=== PATIENT | female | born 1945 | race Caucasian/White ===

== ENCOUNTER 2016-09-23 11:02 | Inpatient (IN) | payer OTHER ==
[~2016-09-23] VITALS: Ht 152.4 cm; Wt 58.0 kg
[2016-09-23 11:06] VITALS: Ht 152.4 cm; Wt 58.0 kg
[2016-09-23] MEDS ORDERED: METHYLPREDNISOLONE 125 MG INJ IV STA (11:27)
[2016-09-23] MEDS ORDERED: IPRATROPIUM (NEB) 0.5 MG/2.5 ML AMP INH STA (11:27)
[2016-09-23] MEDS ORDERED: ALBUTEROL 0.5% (NEB) 2.5 MG/0.5 ML AMP INH STA ×2 (11:27→13:20)
--- NOTE | 2016-09-23 11:30 | ERD ---
ER Documentation Chief Complaint Date/Time DATE: 09/23/16 TIME: 11:28 Chief Complaint COUGH , CHEST CONGESTION , WHEEZING X 3 DAYS HPI This a 71-year-old female who presents the emergency department today with her friend complaining of wheezing and cough for the past 3-4 days. Patient has a history of asthma for which she uses a Ventolin inhaler. Patient has not had improvement in symptoms. Denies any fevers, sore throat. Denies any chest pain. Patient denied ever being intubated for her asthma ROS All systems reviewed and are negative except as per history of present illness. Allergies Allergies: Coded Allergies: No Known Allergy (Unverified , 09/23/16) Physical Exam Vitals Vital Signs Date Time Temp Pulse Resp B/P Pulse Ox O2 Delivery O2 Flow Rate FiO2 09/23/16 13:30 84 22 94 21 09/23/16 11:38 87 24 96 21 09/23/16 11:06 98.2 86 18 137/92 94 Physical Exam Const: Mild distress Head: Atraumatic Eyes: Normal Conjunctiva ENT: Ears TMs normal. Nose no drainage. Throat no erythema no exit Neck: Full range of motion..~ No meningismus. Resp: Diffuse wheezing bilaterally in all lung lindsey that is audible. Cardio: Regular rate and rhythm, no murmurs Abd: Soft, non tender, non distended. Normal bowel sounds Skin: No petechiae or rashes Back: No midline or flank tenderness Ext: No cyanosis, or edema Neur: Awake and alert Psych: Normal Mood and Affect Result Diagram: 09/23/16 1225 09/23/16 1225 Results 24 hrs Laboratory Tests Test 09/23/16 12:22 09/23/16 12:25 Blood Gas Specimen Source Blood arterial Arterial Blood Date Drawn 09/23/2016 12:50:57 PM Arterial Blood pH (Temp corrected) 7.399 Arterial Blood pCO2 (Temp correct) 42.2mmhg Arterial Blood pO2 (Temp corrected) 64.0mmHG Arterial Blood HCO3 25.5mmol/L Arterial Blood Base Excess 0.5mmol/L Arterial Blood Oxygen Saturation 92.7mmHG Nahid Test ACCEPTAB Arterial Blood Gas Puncture Site Right Radial Arterial Blood Carboxyhemoglobin 0.3% Arterial Blood Methemoglobin 0.4% Blood Gas A-a O2 Differential 35.2mmHg Oxyhemoglobin Percent 92.1% Total Hemoglobin 14.2g/dl Blood Gas Temperature 37.0C Blood Gas Modality ROOM AIR FiO2 21.0% Blood Gas Notified Whom JLD Blood Gas Notified Time 09/23/2016 1:03:32 PM White Blood Count 6.810^3/ul Red Blood Count 4.1710^6/ul Hemoglobin 13.3g/dl Hematocrit 40.1% Mean Corpuscular Volume 96.2fl Mean Corpuscular Hemoglobin 31.9pg Mean Corpuscular Hemoglobin Concent 33.2g/dl Red Cell Distribution Width 12.4% Platelet Count 67989^3/UL Mean Platelet Volume 10.3fl Neutrophils % 41.3% Lymphocytes % 44.5% Monocytes % 9.4% Eosinophils % 4.1% Basophils % 0.6% Nucleated Red Blood Cells % 0.0/100WBC Neutrophils # 2.810^3/ul Lymphocytes # 3.010^3/ul Monocytes # 0.610^3/ul Eosinophils # 0.310^3/ul Basophils # 0.010^3/ul Nucleated Red Blood Cells # 0.010^3/ul Sodium Level 144mmol/L Potassium Level 3.1mmol/L Chloride Level 103mmol/L Carbon Dioxide Level 26mmol/L Anion Gap 18 Blood Urea Nitrogen 11mg/dl Creatinine 0.92mg/dl Glucose Level 123mg/dl Calcium Level 9.2mg/dl Total Bilirubin 0.4mg/dl Direct Bilirubin 0.00mg/dl Indirect Bilirubin 0.4mg/dl Aspartate Amino Transf (AST/SGOT) 85IU/L Alanine Aminotransferase (ALT/SGPT) 101IU/L Alkaline Phosphatase 122IU/L Troponin I < 0.012ng/ml Total Protein 7.9g/dl Albumin 4.3g/dl Globulin 3.60g/dl Albumin/Globulin Ratio 1.19 Lipase 105U/L Current Medications Medications (Trade) Dose Ordered Sig/Holli Route PRN Reason Start Time Stop Time Status Last Admin Dose Admin Albuterol (Proventil 0.5% (Neb)) 10 mg ONCE STAT INH 09/23/16 11:27 09/23/16 11:29 DC 09/23/16 11:37 Ipratropium [place] (Atrovent 0.02% (Neb)) 1 mg ONCE STAT INH 09/23/16 11:27 09/23/16 11:29 DC 09/23/16 11:37 Methylprednisolone Sodium Succinate (Solu-Medrol) 125 mg ONCE STAT IV 09/23/16 11:27 09/23/16 11:29 DC 09/23/16 11:40 Magnesium Sulfate 1 gm 1 gm ONCE ONCE IVPB 09/23/16 12:30 09/23/16 12:31 DC Magnesium Sulfate/ Dextrose (Magnesium Sulfate 1 Gm/D5W) 100 ml @ 100 mls/hr ONCE ONCE IVPB 09/23/16 13:00 09/23/16 13:59 DC 09/23/16 12:37 Albuterol 10 mg 10 mg ONCE STAT INH 09/23/16 13:20 09/23/16 13:21 DC 09/23/16 13:31 Levofloxacin/ Dextrose (Levaquin 500mg/ D5W 100 ml (Pmx)) 100 ml @ 100 mls/hr ONCE ONCE IVPB 09/23/16 14:30 09/23/16 15:29 09/23/16 14:26 DIAGNOSTIC IMAGING REPORT Patient: STEFANIA PHAN : 1945 Age: 71 Sex: F MR #: [id number] DOS: 09/23/16 1127 Ordering MD: KEVYN GARCIA PA-C Location: [facility] Room/Bed: PROCEDURE: Chest 1 views. CLINICAL INDICATION: Shortness of breath, asthma TECHNIQUE: AP views of the chest was obtained. COMPARISON: None. FINDINGS: The heart is large. The lungs are hyperexpanded. Atelectasis is seen at the left lung base. Atelectasis versus minimal infiltrates are seen at the right lung base. Subsegmental atelectasis is identified in the right upper lobe. Osseous structures are intact. IMPRESSION: Cardiomegaly . Hyperexpanded lungs. Atelectasis versus minimal infiltrates at the right lung base. Subsegmental atelectasis at the left lung base and in the medial aspect of the right upper lobe. RPTAT: AA .Zoltan Welsh MD, Date Time Electronically viewed and signed by .Zoltan Welsh MD, on 09/23/2016 12:13 .P/ CC: KEVYN GARCIA PA-C Procedures/[facility] This is a 71-year-old female who presents to the emergency department today complaining of wheezing and cough and chest congestion for the past 2-3 days. Patient is an asthmatic and has been using her ventolin inhaler with no improvement in symptoms. I did obtain a chest x-ray. Dr. Adame has seen and evaluated the patient has requested laboratory work as well as a EKG and ABG Laboratory work shows no elevated white blood cell count. She is not anemic. Platelets are within normal limits. Potassium is mildly decreased however patient has been given breathing treatment. Liver function is elevated. Troponin is negative. Lipase within normal limits ABG shows mild hypoxia. Chest x-ray shows hyperexpanded lungs. Atelectasis versus minimal infiltrates at the right lung base. There is subsegmental embolus at left lung base and in the medial aspect of the right upper lobe. The heart is enlarged. EKG read and interpreted by Dr. Adame rate [address] elevation. No QT prolongation. Normal sinus rhythm with incomplete right bundle branch block. Patient was given a 1 hour continuous breathing treatment in addition to IV Solu -Medrol and magnesium. Patient's wheezing persisted and was therefore given another 1 hour breathing treatment. Audible wheezing continued after 2 1 hour continuous breathing treatment and I discussed the patient again with Dr. Adame who feels that the patient should be admitted at this time. I am in agreement. Patient will be admitted to the hospital for acute asthma exacerbation and pneumonia. Patient was given IV Levaquin here in the emergency department. Any further orders placed will be completed by the admitting physician or Dr. Adame. Departure Diagnosis: Primary Impression: Pneumonia Pneumonia type: due to unspecified organism Laterality: right Lung location : lower lobe of lung Qualified Code: J18.1 - Pneumonia of right lower lobe due to infectious organism Additional Impression: Asthma exacerbation Condition: Fair KEVYN GARCIA PA-C September 23, 2016 11:30
--- NOTE | 2016-09-23 12:14 | RADRPT ---
PROCEDURE: Chest 1 views. CLINICAL INDICATION: Shortness of breath, asthma TECHNIQUE: AP views of the chest was obtained. COMPARISON: None. FINDINGS: The heart is large. The lungs are hyperexpanded. Atelectasis is seen at the left lung base. Atelec tasis versus minimal infiltrates are seen at the right lung base. Subsegmental atelectasis is ident ified in the right upper lobe. Osseous structures are intact. IMPRESSION: Cardiomegaly . Hyperexpanded lungs. Atelectasis versus minimal infiltrates at the right lung base. Subsegmental atelectasis at the left lung base and in the medial aspect of the right upper lobe. RPTAT: AA .Zoltan Welsh MD, Date Time Electronically viewed and signed by .Zoltan Welsh MD, MD on 09/23/2016 12:13 .P/
[2016-09-23] MEDS ORDERED: MAGNESIUM SULFATE (GM) 50% 2 ML INJ IVPB ONE (12:30)
[2016-09-23 12:47] LABS: ADD SCAN DIFF NO
[2016-09-23 12:49] LABS: BASOPHILS % 0.6 % (0.0-2.0); EOSINOPHILS # 0.3 10^3/ul (0.0-0.5); EOSINOPHILS % 4.1 % (0.0-7.0); HEMATOCRIT 40.1 % (37.0-47.0); HEMOGLOBIN 13.3 g/dl (12.0-16.0); LYMPHOCYTES % 44.5 % (15.0-51.0); MEAN CORPUSCULAR HEMOGLOBIN 31.9 pg (29.0-33.0); MEAN CORPUSCULAR HGB CONC 33.2 g/dl (32.0-37.0); MEAN CORPUSCULAR VOLUME 96.2 fl (82.0-101.0); MEAN PLATELET VOLUME 10.3 fl (7.4-10.4); MONOCYTE # 0.6 10^3/ul (0.3-0.9); MONOCYTES % 9.4 % (0.0-11.0); NEUTROPHIL # 2.8 10^3/ul (1.6-7.5); NEUTROPHILS % 41.3 % (39.0-77.0); PLATELET COUNT 199 10^3/UL (140-415); RED BLOOD COUNT 4.17 10^6/ul (4.20-5.40); RED CELL DISTRIBUTION WIDTH 12.4 % (11.5-14.5); WHITE BLOOD COUNT 6.8 10^3/ul (4.8-10.8)
[2016-09-23] MEDS ORDERED: MAGNESIUM SULFATE 1 GM/D5W 100 ML IVPB ONE (13:00)
[2016-09-23 13:03] LABS: AADO2 Arterial 35.2 mmHg (7.0-24.0); Allen Test ACCEPTAB; Arterial Base Excess 0.5 mmol/L (-3.0-3); Arterial COHb 0.3 % (0.0-3.0); Arterial Fraction of Oxyhgb 92.1 % (93.0-99.0); Arterial HCO3 25.5 mmol/L (22.0-26.0); Arterial MetHb 0.4 % (0.0-1.5); Arterial Total Hemglobin 14.2 g/dl (12.0-18.0); MODE ROOM AIR
[2016-09-23 13:04] LABS: ALBUMIN 4.3 g/dl (3.3-4.9); CHLORIDE 103 mmol/L (97-110)
[2016-09-23 13:05] LABS: POTASSIUM 3.1 mmol/L (3.5-5.1); SODIUM 144 mmol/L (135-144)
[2016-09-23 13:07] LABS: ALBUMIN/GLOBULIN RATIO 1.19; ANION GAP 18 (8-16); BILIRUBIN,INDIRECT 0.4 mg/dl (0-1.1); BILIRUBIN,TOTAL 0.4 mg/dl (0.2-1.3); CARBON DIOXIDE 26 mmol/L (21-31); CREATININE 0.92 mg/dl (0.44-1.00); TOTAL PROTEIN 7.9 g/dl (6.1-8.1)
[2016-09-23 13:08] LABS: ALANINE AMINOTRANSFERASE 101 IU/L (13-69); ALKALINE PHOSPHATASE 122 IU/L (42-121); ASPARTATE AMINO TRANSFERASE 85 IU/L (15-46); BLOOD UREA NITROGEN 11 mg/dl (7-20); CALCIUM 9.2 mg/dl (8.4-10.2); GLUCOSE 123 mg/dl (70-220)
[2016-09-23 13:25] VITALS: TEMP 98.2
[2016-09-23 13:26] LABS: TROPONIN-I < 0.012 ng/ml (0.00-0.12)
[2016-09-23] MEDS ORDERED: LEVOFLOXACIN 500MG/D5W (PMX) 100 ML IVPB ONE (14:30)
[2016-09-23] MEDS ORDERED: ASPI-664 PO (15:12)
[2016-09-23] MEDS ORDERED: CALC-277 PO (15:15)
[2016-09-23] MEDS ORDERED: AMLO2.5T78 PO (15:16)
[2016-09-23] MEDS ORDERED: VITA200C36 PO (15:16)
[2016-09-23] MEDS ORDERED: LOSA100T7 PO (15:17)
[2016-09-23] MEDS ORDERED: ALBU18HF INHALATION (15:18)
[2016-09-23 17:17] VITALS: BP 156/74; PULSE 94; RESP 19
[2016-09-23 17:24] VITALS: PULSE 100
[2016-09-23] MEDS ORDERED: DOCUSATE SODIUM 100 MG CAP PO PRN (18:30)
[2016-09-23] MEDS ORDERED: NACL 0.9% 3 ML SYG IV SCH (18:30)
[2016-09-23] MEDS ORDERED: ACETAMINOPHEN 325 MG TAB PO PRN (18:30)
[2016-09-23] MEDS ORDERED: DEXTROSE 50% 50 ML SYRINGE IV PRN ×2 (18:30)
[2016-09-23] MEDS ORDERED: ONDANSETRON 4 MG INJ IV PRN (18:30)
[2016-09-23] MEDS ORDERED: ZOLPIDEM 5 MG TAB PO PRN (18:30)
[2016-09-23] MEDS ORDERED: GLUCOSE GEL 15 GRAM TUBE BUCCAL PRN (18:30)
[2016-09-23] MEDS ORDERED: GLUCAGON 1 MG INJ IM PRN (18:30)
[2016-09-23] MEDS ORDERED: HYDROCODONE/APAP (5/325) TAB PO PRN (18:30)
[2016-09-23] MEDS ORDERED: morphine 2 MG INJ IV PRN (18:30)
[2016-09-23] MEDS ORDERED: GLUCOSE GEL 15 GRAM TUBE PO PRN ×2 (18:30)
[2016-09-23] MEDS: CEFTRIAXONE 1 GM/50 ML (PMX) 50 ML IVPB SCH (18:58)
[2016-09-23] MEDS ORDERED: POTASSIUM CHLORIDE (SR) 20 MEQ TAB PO STA (19:16)
[2016-09-23] MEDS: AZITHROMYCIN 500MG/NS (PMX) 250 ML IVPB SCH (19:38)
[2016-09-23 20:00] VITALS: BP 150/74; RESP 19
[2016-09-23 20:15] VITALS: PULSE 100
[2016-09-23] MEDS: LOSARTAN 50 MG TAB PO SCH (20:16)
[2016-09-23] MEDS: SALMETEROL/FLUTICASONE 250/50 INHA INH SCH (20:16)
[2016-09-23] MEDS: INSULIN ASPART [NOVOLOG] 3 ML PEN SC SCH (20:19)
[2016-09-23] MEDS: METHYLPREDNISOLONE 125 MG INJ IV SCH (21:07)
[2016-09-24] VITALS (12 sets, daily range): BP systolic 123–153; BP diastolic 63–72; PULSE 63–87; RESP 17–18
[2016-09-24] MEDS ORDERED: ACCU-CHEK XX SCH (02:00)
[2016-09-24] MEDS: METHYLPREDNISOLONE 125 MG INJ IV SCH ×3 (05:14→22:00)
[2016-09-24] MEDS ORDERED: ALBUTEROL/IPRATROPIUM (NEB) 3 ML AMP HHN PRN ×2 (06:30→11:30)
[2016-09-24 06:55] LABS: ADD SCAN DIFF NO; HAAIG REFLEX REFLEX FILED
[2016-09-24 06:58] LABS: HEMATOCRIT 40.3 % (37.0-47.0); HEMOGLOBIN 13.4 g/dl (12.0-16.0); LYMPHOCYTES # 0.7 10^3/ul (0.8-2.9); LYMPHOCYTES % 11.6 % (15.0-51.0); MEAN CORPUSCULAR HEMOGLOBIN 32.4 pg (29.0-33.0); MEAN CORPUSCULAR HGB CONC 33.3 g/dl (32.0-37.0); MEAN CORPUSCULAR VOLUME 97.3 fl (82.0-101.0); MEAN PLATELET VOLUME 10.5 fl (7.4-10.4); MONOCYTE # 0.2 10^3/ul (0.3-0.9); NEUTROPHIL # 4.8 10^3/ul (1.6-7.5); PLATELET COUNT 202 10^3/UL (140-415); RED BLOOD COUNT 4.14 10^6/ul (4.20-5.40); RED CELL DISTRIBUTION WIDTH 12.4 % (11.5-14.5); WHITE BLOOD COUNT 5.7 10^3/ul (4.8-10.8)
[2016-09-24 07:58] LABS: ALBUMIN 4.1 g/dl (3.3-4.9); ALBUMIN/GLOBULIN RATIO 1.1; BILIRUBIN,INDIRECT 0.3 mg/dl (0-1.1); BILIRUBIN,TOTAL 0.3 mg/dl (0.2-1.3); CALCIUM 8.9 mg/dl (8.4-10.2); CHOL/HDL RATIO 4.5 RATIO; CREATININE 0.79 mg/dl (0.44-1.00); MAGNESIUM 2.2 mg/dl (1.7-2.5); PHOSPHORUS 1.9 mg/dl (2.5-4.9); POTASSIUM 5.1 mmol/L (3.5-5.1); TOTAL PROTEIN 7.8 g/dl (6.1-8.1)
[2016-09-24 08:15] LABS: HEPATITIS B CORE ANTIBODY NEGATIVE (NEGATIVE)
[2016-09-24] MEDS: SALMETEROL/FLUTICASONE 250/50 INHA INH SCH ×2 (08:47→20:20)
[2016-09-24] MEDS: ASPIRIN (EC) 81 MG TAB PO SCH (08:47)
[2016-09-24] MEDS: AMLODIPINE 2.5 MG TAB PO SCH (08:48)
[2016-09-24] MEDS: INSULIN ASPART [NOVOLOG] 3 ML PEN SC SCH ×4 (08:52→20:24)
--- NOTE | 2016-09-24 13:06 | CONS ---
Date/Time of Note Date/Time of Note DATE: 09/24/16 TIME: 13:02 Assessment/Plan Assessment/Plan Additional Assessment/Plan Chest x-ray was reviewed from yesterday which is essentially clear. Assessment recommendations; 1. Patient admitted for severe asthma exacerbation with acute bronchitis. 2. History of hypertension or diabetes. Continue current treatment. Consultation Date/Type/Reason Admit Date/Time September 23, 2016 at 16:01 Date of Consultation: September 24, 2016 Type of Consultation: Pulmonary Reason for Consultation Pulmonary consultations obtained for evaluation of severe asthma. History presenting any; patient is a pleasant 71-year-old lady who came into the emergency room yesterday with a few days history of increasing shortness of breath, chest congestion, wheezing. Patient however denies any high fever, chills any sore throat or myalgias. Upon evaluation patient was diagnosed with asthma exacerbation. Past medical history; next 1. History of long-standing asthma. 2. Diabetes. 3. Hypertension. Medications; reviewed. Allergies; none. Social history; patient never smoked. No history of alcohol or drug abuse. Family history; patient is , she has 5 children. Various family members of hypertension diabetes. Occupational history; patient has been a housewife. Review of systems; denies any headache, any visual changes. Any sinus congestion. Complains of shortness of breath, severe wheezing, cough and sputum production. Denies any hemoptysis. Denies abdominal pain, nausea vomiting. Any weight loss. Complains of orthopnea. Denies any melena, hematochezia. Any edema. Any urinary symptoms. General exam; elderly lady, awake alert currently in no distress, severe coughing episodes were observed. Social History Smoking Status: Never smoker Exam/Review of Systems Vital Signs Vitals Vital Signs Date Time Temp Pulse Resp B/P Pulse Ox O2 Delivery O2 Flow Rate FiO2 09/24/16 11:41 97.8 75 17 129/69 94 09/24/16 09:10 21 Intake and Output 09/23/16 09/23/16 09/24/16 14:59 22:59 06:59 Intake Total 220 ml 420 ml Balance 220 ml 420 ml Exam HEENT exam is; supple neck, no JVD. No lymphadenopathy. Midline trachea. No thyromegaly. Pharynx is clear. Pupils are small bilaterally. Patient has fair dentition. Chest examination; diffuse bilateral wheezing. S1-S2 audible, no murmurs. Regular rhythm. Abdomen examination; soft, nontender, no organomegaly. Bowel sounds audible. Extremity exam is; no peripheral edema. Pulses 1+ bilaterally. PSYCHOLOGY TECH examination; no focal deficit. Results Result Diagram: 09/24/1625 09/24/1625 Results 24 hrs Laboratory Tests Test 09/23/16 19:43 09/24/16 03:41 09/24/16 06:25 09/24/16 08:46 Bedside Glucose 285 H 169 156 White Blood Count 5.7 Red Blood Count 4.14 L Hemoglobin 13.4 Hematocrit 40.3 Mean Corpuscular Volume 97.3 Mean Corpuscular Hemoglobin 32.4 Mean Corpuscular Hemoglobin Concent 33.3 Red Cell Distribution Width 12.4 Platelet Count 202 Mean Platelet Volume 10.5 H Neutrophils % 84.0 H Lymphocytes % 11.6 L Monocytes % 4.0 Eosinophils % 0.0 Basophils % 0.0 Nucleated Red Blood Cells % 0.0 Neutrophils # 4.8 Lymphocytes # 0.7 L Monocytes # 0.2 L Eosinophils # 0.0 Basophils # 0.0 Nucleated Red Blood Cells # 0.0 Sodium Level 145 H Potassium Level 5.1 # Chloride Level 112 H Carbon Dioxide Level 26 Anion Gap 12 Blood Urea Nitrogen 18 Creatinine 0.79 Glucose Level 196 Hemoglobin A1c 6.0 H Calcium Level 8.9 Phosphorus Level 1.9 L Magnesium Level 2.2 Total Bilirubin 0.3 Direct Bilirubin 0.00 Indirect Bilirubin 0.3 Aspartate Amino Transf (AST/SGOT) 46 Alanine Aminotransferase (ALT/SGPT) 80 H Alkaline Phosphatase 110 Total Protein 7.8 Albumin 4.1 Globulin 3.70 H Albumin/Globulin Ratio 1.10 Triglycerides Level 84 Cholesterol Level 174 LDL Cholesterol, Calculated 119 HDL Cholesterol 38 Cholesterol/HDL Ratio 4.5 Hepatitis B Surface Antigen NEGATIVE Hepatitis B Core Total Antibody NEGATIVE Hepatitis C Antibody NEGATIVE Test 09/24/16 11:29 09/24/16 11:33 Bedside Glucose 280 H 279 H Medications Medications Current Medications Ondansetron HCl (Zofran Inj) 4 mg Q6H PRN IV NAUSEA AND/OR VOMITING; Start 09/23 at 18:30 Acetaminophen (Tylenol Tab) 650 mg Q6H PRN PO PAIN LEVEL 1-3 OR FEVER; Start at 18:30 Acetaminophen/ Hydrocodone Bitart ([place] (5/325)) 1 tab Q6H PRN PO MODERATE PAIN LEVEL 4-6; Start 09/23/16 at 18:30 Morphine Sulfate (morphine) 2 mg Q4H PRN IV SEVERE PAIN LEVEL 7-10; Start at 18:30 Docusate Sodium (Colace) 100 mg Q12H PRN PO CONSTIPATION; Start 09/23/16 at 18: 30 Zolpidem Tartrate (Ambien) 5 mg QHS PRN PO SLEEP; Start 09/23/16 at 18:30 Salmeterol Xinafoate/ Fluticasone (Advair 250/50 Diskus) 1 inh BID INH Last administered on 09/24/16 08:47; Admin Dose 1 INH; Start 09/23/16 at 21:00 Methylprednisolone Sodium Succinate 60 mg 60 mg Q8 IV Last administered on 05:14; Admin Dose 60 MG; Start 09/23/16 at 22:00 Azithromycin 250 ml @ 250 mls/hr Q24H IVPB Last administered on 09/23/16 19:38 ; Admin Dose 250 MLS/HR; Start 09/23/16 at 18:30 Ceftriaxone Sodium (Rocephin) 50 ml @ 100 mls/hr Q24H IVPB Last administered on 09/23/16 18:58; Admin Dose 100 MLS/HR; Start 09/23/16 at 18:30 Amlodipine Besylate (Norvasc) 2.5 mg DAILY PO Last administered on 09/24/16 08: 48; Admin Dose 2.5 MG; Start 09/24/16 at 09:00 Aspirin (Halfprin) 81 mg DAILY PO Last administered on 09/24/16 08:47; Admin Dose 81 MG; Start 09/24/16 at 09:00 Losartan Potassium (Cozaar) 100 mg QHS PO Last administered on 09/23/16 20:16; Admin Dose 100 MG; Start 09/23/16 at 21:00 Diagnostic Test (Pha) (Accu-Chek) 1 ea 02 XX ; Start 09/24/16 at 02:00 Miscellaneous Information 1 ea NOTE XX ; Start 09/23/16 at 18:30 Glucose (Glutose) 15 gm Q15M PRN PO DECREASED GLUCOSE; Start 09/23/16 at 18:30 Glucose (Glutose) 22.5 gm Q15M PRN PO DECREASED GLUCOSE; Start 09/23/16 at 18:30 Dextrose (D50w Syringe) 25 ml Q15M PRN IV DECREASED GLUCOSE; Start 09/23/16 at 18:30 Dextrose (D50w Syringe) 50 ml Q15M PRN IV DECREASED GLUCOSE; Start 09/23/16 at 18:30 Glucagon (Glucagen) 1 mg Q15M PRN IM DECREASED GLUCOSE; Start 09/23/16 at 18:30 Glucose (Glutose) 15 gm Q15M PRN BUCCAL DECREASED GLUCOSE; Start 09/23/16 at 18: 30 Promethazine HCl/ Codeine (Phenergan/ Codeine) 5 ml Q4H PRN PO COUGH; Start 09/24/16 at 11:30 GREGORY BAILEY September 24, 2016 13:05
[2016-09-24] MEDS: PROMETHAZINE/CODEINE 5ML CUP PO PRN ×2 (14:18→23:59)
[2016-09-24] MEDS: ALBUTEROL/IPRATROPIUM (NEB) 3 ML AMP HHN PRN (14:57)
--- NOTE | 2016-09-24 15:27 | PN ---
Date/Time of Note Date/Time of Note DATE: 09/24/16 TIME: 15:22 Assessment/Plan VTE Prophylaxis VTE Prophylaxis Intervention: SCD's Lines/Catheters IV [facility] Saline Lock Assessment/Plan Chief Complaint/Hosp Course 1. Acute asthma exacerbation with acute bronchitis -Continue Rocephin and azithromycin -Continue breathing treatments as well as IV steroids -Pulmonology consultation appreciated -Phenergan with codeine as needed 2. Hypertension-stable -Continue home meds Prophylaxis: SCDs Problems: Subjective 24 Hr Interval Summary Respiratory: shortness of breath Exam/Review of Systems Vital Signs Vitals Vital Signs Date Time Temp Pulse Resp B/P Pulse Ox O2 Delivery O2 Flow Rate FiO2 09/24/16 14:01 78 09/24/16 11:41 97.8 17 129/69 94 09/24/16 09:10 21 Intake and Output 09/23/16 09/23/16 09/24/16 15:00 23:00 07:00 Intake Total 220 ml 420 ml Balance 220 ml 420 ml Exam Constitutional: alert Respiratory: wheezing Cardiovascular: regular rate and rhythm Gastrointestinal: soft, No distended Musculoskeletal: nl extremities to inspection Results Result Diagram: 09/24/16 0625 09/24/16 0625 Results 24 hrs Laboratory Tests Test 09/23/16 19:43 09/24/16 03:41 09/24/16 06:25 09/24/16 08:46 Bedside Glucose 285 H 169 156 White Blood Count 5.7 Red Blood Count 4.14 L Hemoglobin 13.4 Hematocrit 40.3 Mean Corpuscular Volume 97.3 Mean Corpuscular Hemoglobin 32.4 Mean Corpuscular Hemoglobin Concent 33.3 Red Cell Distribution Width 12.4 Platelet Count 202 Mean Platelet Volume 10.5 H Neutrophils % 84.0 H Lymphocytes % 11.6 L Monocytes % 4.0 Eosinophils % 0.0 Basophils % 0.0 Nucleated Red Blood Cells % 0.0 Neutrophils # 4.8 Lymphocytes # 0.7 L Monocytes # 0.2 L Eosinophils # 0.0 Basophils # 0.0 Nucleated Red Blood Cells # 0.0 Sodium Level 145 H Potassium Level 5.1 # Chloride Level 112 H Carbon Dioxide Level 26 Anion Gap 12 Blood Urea Nitrogen 18 Creatinine 0.79 Glucose Level 196 Hemoglobin A1c 6.0 H Calcium Level 8.9 Phosphorus Level 1.9 L Magnesium Level 2.2 Total Bilirubin 0.3 Direct Bilirubin 0.00 Indirect Bilirubin 0.3 Aspartate Amino Transf (AST/SGOT) 46 Alanine Aminotransferase (ALT/SGPT) 80 H Alkaline Phosphatase 110 Total Protein 7.8 Albumin 4.1 Globulin 3.70 H Albumin/Globulin Ratio 1.10 Triglycerides Level 84 Cholesterol Level 174 LDL Cholesterol, Calculated 119 HDL Cholesterol 38 Cholesterol/HDL Ratio 4.5 Hepatitis B Surface Antigen NEGATIVE Hepatitis B Core Total Antibody NEGATIVE Hepatitis C Antibody NEGATIVE Test 09/24/16 11:29 09/24/16 11:33 Bedside Glucose 280 H 279 H Medications Medications Current Medications Ondansetron HCl (Zofran Inj) 4 mg Q6H PRN IV NAUSEA AND/OR VOMITING; Start 09/23 at 18:30 Acetaminophen (Tylenol Tab) 650 mg Q6H PRN PO PAIN LEVEL 1-3 OR FEVER; Start at 18:30 Acetaminophen/ Hydrocodone Bitart ([place] (5/325)) 1 tab Q6H PRN PO MODERATE PAIN LEVEL 4-6; Start 09/23/16 at 18:30 Morphine Sulfate (morphine) 2 mg Q4H PRN IV SEVERE PAIN LEVEL 7-10; Start at 18:30 Docusate Sodium (Colace) 100 mg Q12H PRN PO CONSTIPATION; Start 09/23/16 at 18: 30 Zolpidem Tartrate (Ambien) 5 mg QHS PRN PO SLEEP; Start 09/23/16 at 18:30 Salmeterol Xinafoate/ Fluticasone (Advair 250/50 Diskus) 1 inh BID INH Last administered on 09/24/16 08:47; Admin Dose 1 INH; Start 09/23/16 at 21:00 Methylprednisolone Sodium Succinate 60 mg 60 mg Q8 IV Last administered on 14:18; Admin Dose 60 MG; Start 09/23/16 at 22:00 Azithromycin 250 ml @ 250 mls/hr Q24H IVPB Last administered on 09/23/16 19:38 ; Admin Dose 250 MLS/HR; Start 09/23/16 at 18:30 Ceftriaxone Sodium (Rocephin) 50 ml @ 100 mls/hr Q24H IVPB Last administered on 09/23/16 18:58; Admin Dose 100 MLS/HR; Start 09/23/16 at 18:30 Amlodipine Besylate (Norvasc) 2.5 mg DAILY PO Last administered on 09/24/16 08: 48; Admin Dose 2.5 MG; Start 09/24/16 at 09:00 Aspirin (Halfprin) 81 mg DAILY PO Last administered on 09/24/16 08:47; Admin Dose 81 MG; Start 09/24/16 at 09:00 Losartan Potassium (Cozaar) 100 mg QHS PO Last administered on 09/23/16 20:16; Admin Dose 100 MG; Start 09/23/16 at 21:00 Diagnostic Test (Pha) (Accu-Chek) 1 ea 02 XX ; Start 09/24/16 at 02:00 Miscellaneous Information 1 ea NOTE XX ; Start 09/23/16 at 18:30 Glucose (Glutose) 15 gm Q15M PRN PO DECREASED GLUCOSE; Start 09/23/16 at 18:30 Glucose (Glutose) 22.5 gm Q15M PRN PO DECREASED GLUCOSE; Start 09/23/16 at 18:30 Dextrose (D50w Syringe) 25 ml Q15M PRN IV DECREASED GLUCOSE; Start 09/23/16 at 18:30 Dextrose (D50w Syringe) 50 ml Q15M PRN IV DECREASED GLUCOSE; Start 09/23/16 at 18:30 Glucagon (Glucagen) 1 mg Q15M PRN IM DECREASED GLUCOSE; Start 09/23/16 at 18:30 Glucose (Glutose) 15 gm Q15M PRN BUCCAL DECREASED GLUCOSE; Start 09/23/16 at 18: 30 Promethazine HCl/ Codeine (Phenergan/ Codeine) 5 ml Q4H PRN PO COUGH Last administered on 09/24/16 14:18; Admin Dose 5 ML; Start 09/24/16 at 11:30 DAIJA CONWAY September 24, 2016 15:27
[2016-09-24] MEDS: CEFTRIAXONE 1 GM/50 ML (PMX) 50 ML IVPB SCH (17:48)
[2016-09-24] MEDS: AZITHROMYCIN 500MG/NS (PMX) 250 ML IVPB SCH (17:48)
[2016-09-24] MEDS: ALBUTEROL/IPRATROPIUM (NEB) 3 ML AMP HHN SCH ×2 (17:53→20:47)
[2016-09-24] MEDS: LOSARTAN 50 MG TAB PO SCH (20:20)
[2016-09-24] MEDS ORDERED: INSULIN ASPART [NOVOLOG] 3 ML PEN SC ONE (21:30)
[2016-09-24] MEDS ORDERED: INSULIN GLARGINE [LANtus] 3 ML PEN SC SCH (22:30)
[2016-09-25] VITALS (12 sets, daily range): BP systolic 90–127; BP diastolic 49–62; PULSE 80–85; RESP 16–20
[2016-09-25] MEDS: ALBUTEROL/IPRATROPIUM (NEB) 3 ML AMP HHN SCH ×6 (00:08→21:00)
[2016-09-25] MEDS: ACCU-CHEK XX SCH (02:00)
[2016-09-25] MEDS: METHYLPREDNISOLONE 125 MG INJ IV SCH ×3 (05:36→22:05)
[2016-09-25] MEDS: PROMETHAZINE/CODEINE 5ML CUP PO PRN ×2 (05:50→14:11)
--- NOTE | 2016-09-25 07:16 | HP ---
DATE OF ADMISSION: 09/23/2016 CHIEF COMPLAINT: Shortness of breath. HISTORY OF PRESENT ILLNESS: The patient is a 71-year-old female with a history of asthma, as well a s [id number] diabetes and hypertension. The patient is only using albuterol and she stat es that she uses albuterol twice a day. The patient states that for the past 3 days she has had per sistent wheezing and shortness of breath with mucus production. She states that the albuterol inhal er has not been helping her and hence presents to the ED. She has no other complaints at this time. PAST MEDICAL HISTORY: As per HPI. PAST SURGICAL HISTORY: Denies. HOME MEDICATIONS: Please see medication reconciliation. ALLERGIES: NO KNOWN DRUG ALLERGIES. FAMILY HISTORY: Hypertension, diabetes. SOCIAL HISTORY: Denies any alcohol, tobacco, or drug use. REVIEW OF SYSTEMS: A 12-point review of systems is negative except as per that in HPI. PHYSICAL EXAMINATION: VITAL SIGNS: Temperature 98.8, pulse 100, respiratory rate is 19, BP is 156/74, saturation 95% on 3 liters of nasal cannula. No acute distress, alert and oriented. HEENT: Normocephalic, atraumatic. CHEST: Bilateral wheezing appreciated. CARDIOVASCULAR: Regular rate and rhythm. ABDOMEN: Nondistended, nontender, soft. EXTREMITIES: No clubbing, cyanosis, edema. LABORATORIES: White count 6.8, hemoglobin is 13.3, platelets 199. Chemistry: Sodium is 144, potas sium is 3.1, anion gap is 18. AST is 85, ALT is 101, alkaline phosphatase 122. DIAGNOSTICS: Chest x-ray shows cardiomegaly, hyperexpanded lungs, atelectasis versus minimal infilt rates in the right lung base, subsegmental atelectasis at the left lung base and the medial aspect o f the right upper lobe ASSESSMENT AND PLAN: 1. Asthma exacerbation. The patient may have concomitant bronchitis as she does have a productive cough as well as chest x-ray that shows possible infiltrates in the right lung base. Will treat wit h Rocephin and azithromycin will give the patient steroids as well as prednisone p.o. 2. Hypokalemia. We will replete. 3. Diabetes. sliding scale. Continue home metformin. 4. Hypertension. Continue home medications. 5. Transaminitis, cause unclear. We will check a hep panel. 7. Prophylaxis: SCDs and . Dictated By: DAIJA THOMAS/ZELDA Conf#: [id number] DID#: [id number]
[2016-09-25 08:02] LABS: ADD SCAN DIFF NO
[2016-09-25 08:07] LABS: BASOPHILS % 0.1 % (0.0-2.0); HEMATOCRIT 38.8 % (37.0-47.0); HEMOGLOBIN 12.4 g/dl (12.0-16.0); LYMPHOCYTES # 0.6 10^3/ul (0.8-2.9); LYMPHOCYTES % 4.7 % (15.0-51.0); MEAN CORPUSCULAR HEMOGLOBIN 31.2 pg (29.0-33.0); MEAN CORPUSCULAR VOLUME 97.7 fl (82.0-101.0); MEAN PLATELET VOLUME 10.9 fl (7.4-10.4); MONOCYTE # 0.4 10^3/ul (0.3-0.9); NEUTROPHIL # 12.2 10^3/ul (1.6-7.5); NEUTROPHILS % 91.7 % (39.0-77.0); PLATELET COUNT 213 10^3/UL (140-415); RED BLOOD COUNT 3.97 10^6/ul (4.20-5.40); RED CELL DISTRIBUTION WIDTH 12.9 % (11.5-14.5); WHITE BLOOD COUNT 13.3 10^3/ul (4.8-10.8)
[2016-09-25] MEDS: SALMETEROL/FLUTICASONE 250/50 INHA INH SCH ×2 (08:11→20:40)
[2016-09-25] MEDS: AMLODIPINE 2.5 MG TAB PO SCH (08:12)
[2016-09-25] MEDS: ASPIRIN (EC) 81 MG TAB PO SCH (08:12)
[2016-09-25] MEDS: INSULIN ASPART [NOVOLOG] 3 ML PEN SC SCH ×7 (08:22→20:42)
[2016-09-25 08:36] LABS: ALBUMIN 3.8 g/dl (3.3-4.9); ALBUMIN/GLOBULIN RATIO 1.22; BILIRUBIN,INDIRECT 0.1 mg/dl (0-1.1); BILIRUBIN,TOTAL 0.1 mg/dl (0.2-1.3); CALCIUM 8.5 mg/dl (8.4-10.2); PHOSPHORUS 3.1 mg/dl (2.5-4.9); POTASSIUM 3.9 mmol/L (3.5-5.1); TOTAL PROTEIN 6.9 g/dl (6.1-8.1)
--- NOTE | 2016-09-25 10:56 | CONS ---
Date/Time of Note Date/Time of Note DATE: 09/25/16 TIME: 10:54 Assessment/Plan Assessment/Plan Additional Assessment/Plan Assessment recommendations; 1. Patient admitted for severe asthmatic bronchitis exacerbation with very slow clinical improvement. 2. History of hypertension. 3. History of diabetes. Continue current treatment. Insulin dosing has been adjusted by the primary care physician for better glycemic control. Consultation Date/Type/Reason Admit Date/Time September 23, 2016 at 16:01 Initial Consult Date 09/24/16 Type of Consultation: Pulmonary 24 HR Interval Summary Free Text/Dictation Patient condition has slightly improved compared to yesterday. However still complains of significant wheezing, chest congestion and coughing. Denies any fever chills chest pain. General exam; elderly lady, awake alert currently in no distress, Exam/Review of Systems Vital Signs Vitals Vital Signs Date Time Temp Pulse Resp B/P Pulse Ox O2 Delivery O2 Flow Rate FiO2 09/25/16 08:36 80 09/25/16 08:21 2.0 09/25/16 08:16 Nasal Cannula 09/25/16 08:00 28 95 09/25/16 07:41 97.4 107/58 09/24/16 09:10 21 Intake and Output 09/24/16 09/24/16 09/25/16 15:00 23:00 07:00 Intake Total 1300 ml 700 ml Balance 1300 ml 700 ml Exam HEENT exam is; supple neck, no JVD. No lymphadenopathy. Midline trachea. No thyromegaly. Pharynx is clear. Patient has fair dentition. Chest examined; bilateral wheezing. S1-S2 audible, no murmurs. Regular rhythm. Abdomen examination; soft, nondistended. No organomegaly. Bowel sounds audible. Extremity examination; no peripheral edema. [employer] examination; no focal deficit. Results Result Diagram: 09/25/16 0642 09/25/16 0642 Results 24 hrs Laboratory Tests Test 09/24/16 11:29 09/24/16 11:33 09/24/16 17:46 09/24/16 20:17 Bedside Glucose 280 H 279 H 190 320 H Test 09/25/16 01:33 09/25/16 06:42 09/25/16 08:08 Bedside Glucose 277 H 247 H White Blood Count 13.3 #H Red Blood Count 3.97 L Hemoglobin 12.4 Hematocrit 38.8 Mean Corpuscular Volume 97.7 Mean Corpuscular Hemoglobin 31.2 Mean Corpuscular Hemoglobin Concent 32.0 Red Cell Distribution Width 12.9 Platelet Count 213 Mean Platelet Volume 10.9 H Neutrophils % 91.7 H Lymphocytes % 4.7 L Monocytes % 3.0 Eosinophils % 0.0 Basophils % 0.1 Nucleated Red Blood Cells % 0.0 Neutrophils # 12.2 H Lymphocytes # 0.6 L Monocytes # 0.4 Eosinophils # 0.0 Basophils # 0.0 Nucleated Red Blood Cells # 0.0 Sodium Level 145 H Potassium Level 3.9 Chloride Level 111 H Carbon Dioxide Level 22 Anion Gap 16 Blood Urea Nitrogen 28 H Creatinine 1.00 Glucose Level 272 H Calcium Level 8.5 Phosphorus Level 3.1 Total Bilirubin 0.1 L Direct Bilirubin 0.00 Indirect Bilirubin 0.1 Aspartate Amino Transf (AST/SGOT) 28 Alanine Aminotransferase (ALT/SGPT) 58 Alkaline Phosphatase 83 Total Protein 6.9 Albumin 3.8 Globulin 3.10 Albumin/Globulin Ratio 1.22 Medications Medications Current Medications Ondansetron HCl (Zofran Inj) 4 mg Q6H PRN IV NAUSEA AND/OR VOMITING; Start 09/23 at 18:30 Acetaminophen (Tylenol Tab) 650 mg Q6H PRN PO PAIN LEVEL 1-3 OR FEVER; Start at 18:30 Acetaminophen/ Hydrocodone Bitart ([place] (5/325)) 1 tab Q6H PRN PO MODERATE PAIN LEVEL 4-6; Start 09/23/16 at 18:30 Morphine Sulfate (morphine) 2 mg Q4H PRN IV SEVERE PAIN LEVEL 7-10; Start at 18:30 Docusate Sodium (Colace) 100 mg Q12H PRN PO CONSTIPATION; Start 09/23/16 at 18: 30 Zolpidem Tartrate (Ambien) 5 mg QHS PRN PO SLEEP; Start 09/23/16 at 18:30 Salmeterol Xinafoate/ Fluticasone (Advair 250/50 Diskus) 1 inh BID INH Last administered on 09/25/16 08:11; Admin Dose 1 INH; Start 09/23/16 at 21:00 Methylprednisolone Sodium Succinate 60 mg 60 mg Q8 IV Last administered on 09/25 05:36; Admin Dose 60 MG; Start 09/23/16 at 22:00 Azithromycin 250 ml @ 250 mls/hr Q24H IVPB Last administered on 09/24/16 17:48 ; Admin Dose 250 MLS/HR; Start 09/23/16 at 18:30 Ceftriaxone Sodium (Rocephin) 50 ml @ 100 mls/hr Q24H IVPB Last administered on 09/24/16 17:48; Admin Dose 100 MLS/HR; Start 09/23/16 at 18:30 Amlodipine Besylate (Norvasc) 2.5 mg DAILY PO Last administered on 09/25/16 08 :12; Admin Dose 2.5 MG; Start 09/24/16 at 09:00 Aspirin (Halfprin) 81 mg DAILY PO Last administered on 09/25/16 08:12; Admin Dose 81 MG; Start 09/24/16 at 09:00 Losartan Potassium (Cozaar) 100 mg QHS PO Last administered on 09/24/16 20:20; Admin Dose 100 MG; Start 09/23/16 at 21:00 Miscellaneous Information 1 ea NOTE XX ; Start 09/23/16 at 18:30 Glucose (Glutose) 15 gm Q15M PRN PO DECREASED GLUCOSE; Start 09/23/16 at 18:30 Glucose (Glutose) 22.5 gm Q15M PRN PO DECREASED GLUCOSE; Start 09/23/16 at 18:30 Dextrose (D50w Syringe) 25 ml Q15M PRN IV DECREASED GLUCOSE; Start 09/23/16 at 18:30 Dextrose (D50w Syringe) 50 ml Q15M PRN IV DECREASED GLUCOSE; Start 09/23/16 at 18:30 Glucagon (Glucagen) 1 mg Q15M PRN IM DECREASED GLUCOSE; Start 09/23/16 at 18:30 Glucose (Glutose) 15 gm Q15M PRN BUCCAL DECREASED GLUCOSE; Start 09/23/16 at 18: 30 Promethazine HCl/ Codeine (Phenergan/ Codeine) 5 ml Q4H PRN PO COUGH Last administered on 09/25/16 05:50; Admin Dose 5 ML; Start 09/24/16 at 11:30 Diagnostic Test (Pha) (Accu-Chek) 1 ea 02 XX ; Start 09/25/16 at 02:00 Insulin Glargine (Lantus) 15 unit DAILY@20 SC ; Start 09/25/16 at 20:00 GREGORY BAILEY September 25, 2016 10:55
[2016-09-25] MEDS ORDERED: INSULIN GLARGINE [LANtus] 3 ML PEN SC SCH ×2 (11:00→20:00)
--- NOTE | 2016-09-25 16:08 | PN ---
Date/Time of Note Date/Time of Note DATE: 09/25/16 TIME: 16:06 Assessment/Plan VTE Prophylaxis VTE Prophylaxis Intervention: SCD's Lines/Catheters [facility] Saline Lock Assessment/Plan Chief Complaint/Hosp Course 1. Acute asthma exacerbation with acute bronchitis-improving -Continue Rocephin and azithromycin -Continue breathing treatments as well as IV steroids -Pulmonology consultation appreciated -Phenergan with codeine as needed 2. Hypertension-stable -Continue home meds 3. Hyperglycemia -A1c is 6.0 -Increased Lantus dose Prophylaxis: SCDs Problems: Subjective 24 Hr Interval Summary Respiratory: pleuritic pain Exam/Review of Systems Vital Signs Vitals Vital Signs Date Time Temp Pulse Resp B/P Pulse Ox O2 Delivery O2 Flow Rate FiO2 09/25/16 15:08 98.0 88 20 127/60 97 09/25/16 13:51 Nasal Cannula 2.0 09/24/16 09:10 21 Intake and Output 09/24/16 09/24/16 09/25/16 15:00 23:00 07:00 Intake Total 1300 ml 700 ml Balance 1300 ml 700 ml Exam Constitutional: alert Respiratory: clear to auscultation Cardiovascular: regular rate and rhythm Gastrointestinal: soft, No distended Musculoskeletal: nl extremities to inspection Results Result Diagram: 09/25/16 0642 09/25/16 0642 Results 24 hrs Laboratory Tests Test 09/24/16 17:46 09/24/16 20:17 09/25/16 01:33 09/25/16 06:42 Bedside Glucose 190 320 H 277 H White Blood Count 13.3 #H Red Blood Count 3.97 L Hemoglobin 12.4 Hematocrit 38.8 Mean Corpuscular Volume 97.7 Mean Corpuscular Hemoglobin 31.2 Mean Corpuscular Hemoglobin Concent 32.0 Red Cell Distribution Width 12.9 Platelet Count 213 Mean Platelet Volume 10.9 H Neutrophils % 91.7 H Lymphocytes % 4.7 L Monocytes % 3.0 Eosinophils % 0.0 Basophils % 0.1 Nucleated Red Blood Cells % 0.0 Neutrophils # 12.2 H Lymphocytes # 0.6 L Monocytes # 0.4 Eosinophils # 0.0 Basophils # 0.0 Nucleated Red Blood Cells # 0.0 Sodium Level 145 H Potassium Level 3.9 Chloride Level 111 H Carbon Dioxide Level 22 Anion Gap 16 Blood Urea Nitrogen 28 H Creatinine 1.00 Glucose Level 272 H Calcium Level 8.5 Phosphorus Level 3.1 Total Bilirubin 0.1 L Direct Bilirubin 0.00 Indirect Bilirubin 0.1 Aspartate Amino Transf (AST/SGOT) 28 Alanine Aminotransferase (ALT/SGPT) 58 Alkaline Phosphatase 83 Total Protein 6.9 Albumin 3.8 Globulin 3.10 Albumin/Globulin Ratio 1.22 Test 09/25/16 08:08 09/25/16 12:08 Bedside Glucose 247 H 238 H Medications Medications Current Medications Ondansetron HCl (Zofran Inj) 4 mg Q6H PRN IV NAUSEA AND/OR VOMITING; Start 09/23 at 18:30 Acetaminophen (Tylenol Tab) 650 mg Q6H PRN PO PAIN LEVEL 1-3 OR FEVER; Start at 18:30 Acetaminophen/ Hydrocodone Bitart ([place] (5/325)) 1 tab Q6H PRN PO MODERATE PAIN LEVEL 4-6; Start 09/23/16 at 18:30 Morphine Sulfate (morphine) 2 mg Q4H PRN IV SEVERE PAIN LEVEL 7-10; Start at 18:30 Docusate Sodium (Colace) 100 mg Q12H PRN PO CONSTIPATION; Start 09/23/16 at 18: 30 Zolpidem Tartrate (Ambien) 5 mg QHS PRN PO SLEEP; Start 09/23/16 at 18:30 Salmeterol Xinafoate/ Fluticasone (Advair 250/50 Diskus) 1 inh BID INH Last administered on 09/25/16 08:11; Admin Dose 1 INH; Start 09/23/16 at 21:00 Methylprednisolone Sodium Succinate 60 mg 60 mg Q8 IV Last administered on 09/25 14:12; Admin Dose 60 MG; Start 09/23/16 at 22:00 Azithromycin 250 ml @ 250 mls/hr Q24H IVPB Last administered on 09/24/16 17:48 ; Admin Dose 250 MLS/HR; Start 09/23/16 at 18:30 Ceftriaxone Sodium (Rocephin) 50 ml @ 100 mls/hr Q24H IVPB Last administered on 09/24/16 17:48; Admin Dose 100 MLS/HR; Start 09/23/16 at 18:30 Amlodipine Besylate (Norvasc) 2.5 mg DAILY PO Last administered on 09/25/16 08 :12; Admin Dose 2.5 MG; Start 09/24/16 at 09:00 Aspirin (Halfprin) 81 mg DAILY PO Last administered on 09/25/16 08:12; Admin Dose 81 MG; Start 09/24/16 at 09:00 Losartan Potassium (Cozaar) 100 mg QHS PO Last administered on 09/24/16 20:20; Admin Dose 100 MG; Start 09/23/16 at 21:00 Miscellaneous Information 1 ea NOTE XX ; Start 09/23/16 at 18:30 Glucose (Glutose) 15 gm Q15M PRN PO DECREASED GLUCOSE; Start 09/23/16 at 18:30 Glucose (Glutose) 22.5 gm Q15M PRN PO DECREASED GLUCOSE; Start 09/23/16 at 18:30 Dextrose (D50w Syringe) 25 ml Q15M PRN IV DECREASED GLUCOSE; Start 09/23/16 at 18:30 Dextrose (D50w Syringe) 50 ml Q15M PRN IV DECREASED GLUCOSE; Start 09/23/16 at 18:30 Glucagon (Glucagen) 1 mg Q15M PRN IM DECREASED GLUCOSE; Start 09/23/16 at 18:30 Glucose (Glutose) 15 gm Q15M PRN BUCCAL DECREASED GLUCOSE; Start 09/23/16 at 18: 30 Promethazine HCl/ Codeine (Phenergan/ Codeine) 5 ml Q4H PRN PO COUGH Last administered on 09/25/16 14:11; Admin Dose 5 ML; Start 09/24/16 at 11:30 Diagnostic Test (Pha) (Accu-Chek) 1 ea 02 XX ; Start 09/25/16 at 02:00 Insulin Glargine (Lantus) 15 unit DAILY@20 SC ; Start 09/25/16 at 20:00 DAIJA CONWAY September 25, 2016 16:08
[2016-09-25] MEDS: CEFTRIAXONE 1 GM/50 ML (PMX) 50 ML IVPB SCH (17:57)
[2016-09-25] MEDS: AZITHROMYCIN 500MG/NS (PMX) 250 ML IVPB SCH (17:57)
[2016-09-25] MEDS: LOSARTAN 50 MG TAB PO SCH (20:40)
[2016-09-26] VITALS (12 sets, daily range): BP systolic 120–149; BP diastolic 59–80; PULSE 70–88; RESP 16–20
[2016-09-26] MEDS: ALBUTEROL/IPRATROPIUM (NEB) 3 ML AMP HHN SCH ×6 (01:00→20:01)
[2016-09-26] MEDS: ACCU-CHEK XX SCH (02:07)
[2016-09-26] MEDS: METHYLPREDNISOLONE 125 MG INJ IV SCH ×2 (06:01→20:50)
[2016-09-26 07:03] LABS: ADD SCAN DIFF NO
[2016-09-26 07:11] LABS: BASOPHILS % 0.1 % (0.0-2.0); HEMATOCRIT 38.1 % (37.0-47.0); HEMOGLOBIN 12.2 g/dl (12.0-16.0); LYMPHOCYTES # 0.8 10^3/ul (0.8-2.9); LYMPHOCYTES % 5.9 % (15.0-51.0); MEAN CORPUSCULAR HEMOGLOBIN 31.4 pg (29.0-33.0); MEAN CORPUSCULAR VOLUME 97.9 fl (82.0-101.0); MEAN PLATELET VOLUME 10.5 fl (7.4-10.4); MONOCYTE # 0.4 10^3/ul (0.3-0.9); MONOCYTES % 2.7 % (0.0-11.0); NEUTROPHIL # 12.2 10^3/ul (1.6-7.5); NEUTROPHILS % 90.6 % (39.0-77.0); PLATELET COUNT 220 10^3/UL (140-415); RED BLOOD COUNT 3.89 10^6/ul (4.20-5.40); RED CELL DISTRIBUTION WIDTH 12.8 % (11.5-14.5); WHITE BLOOD COUNT 13.5 10^3/ul (4.8-10.8)
[2016-09-26 07:35] LABS: CALCIUM 8.5 mg/dl (8.4-10.2); CREATININE 0.91 mg/dl (0.44-1.00); POTASSIUM 4.4 mmol/L (3.5-5.1)
[2016-09-26] MEDS: SALMETEROL/FLUTICASONE 250/50 INHA INH SCH ×2 (08:15→20:49)
[2016-09-26] MEDS: PROMETHAZINE/CODEINE 5ML CUP PO PRN ×2 (08:19→16:05)
[2016-09-26] MEDS: ASPIRIN (EC) 81 MG TAB PO SCH (08:20)
[2016-09-26] MEDS: AMLODIPINE 2.5 MG TAB PO SCH (08:20)
[2016-09-26] MEDS: INSULIN ASPART [NOVOLOG] 3 ML PEN SC SCH ×7 (08:26→21:40)
--- NOTE | 2016-09-26 12:30 | CONS ---
Date/Time of Note Date/Time of Note DATE: 09/26/16 TIME: 12:28 Consult Date/Type/Reason Admit Date/Time September 23, 2016 at 16:01 Initial Consult Date 09/24/16 Type of Consultation: Pulmonary Subjective Slowly improving Objective Vital Signs Date Time Temp Pulse Resp B/P Pulse Ox O2 Delivery O2 Flow Rate FiO2 09/26/16 12:00 88 09/26/16 11:42 97.4 20 149/80 92 09/26/16 08:10 Nasal Cannula 3.0 09/24/16 09:10 21 Intake and Output 09/25/16 09/25/16 09/26/16 15:00 23:00 07:00 Intake Total 960 ml 300 ml Balance 960 ml 300 ml Exam GENERAL: VITAL SIGNS: per chart NECK: Supple. No JVD or lymphadenopathy. CARDIAC EXAM: S1, S2. No added sounds or murmurs. CHEST: clear bilaterally, No added sounds, rales or wheezes ABDOMEN: Soft, nontender. No guarding or rebound. EXTREMITIES: No cyanosis, clubbing or edema. NEUROLOGIC: Generalized weakness. No focal deficits. Results/Medications Result Diagram: 09/26/16 0645 09/26/16 0645 Results 24 hrs Laboratory Tests Test 09/25/16 16:57 09/25/16 20:33 09/26/16 01:53 09/26/16 06:45 Bedside Glucose 293 H 281 H 248 H White Blood Count 13.5 H Red Blood Count 3.89 L Hemoglobin 12.2 Hematocrit 38.1 Mean Corpuscular Volume 97.9 Mean Corpuscular Hemoglobin 31.4 Mean Corpuscular Hemoglobin Concent 32.0 Red Cell Distribution Width 12.8 Platelet Count 220 Mean Platelet Volume 10.5 H Neutrophils % 90.6 H Lymphocytes % 5.9 L Monocytes % 2.7 Eosinophils % 0.0 Basophils % 0.1 Nucleated Red Blood Cells % 0.0 Neutrophils # 12.2 H Lymphocytes # 0.8 Monocytes # 0.4 Eosinophils # 0.0 Basophils # 0.0 Nucleated Red Blood Cells # 0.0 Sodium Level 142 Potassium Level 4.4 Chloride Level 111 H Carbon Dioxide Level 24 Anion Gap 11 Blood Urea Nitrogen 32 H Creatinine 0.91 Glucose Level 219 Calcium Level 8.5 Test 09/26/16 08:14 09/26/16 11:51 Bedside Glucose 207 272 H Medications Current Medications Ondansetron HCl (Zofran Inj) 4 mg Q6H PRN IV NAUSEA AND/OR VOMITING; Start 09/23 at 18:30 Acetaminophen (Tylenol Tab) 650 mg Q6H PRN PO PAIN LEVEL 1-3 OR FEVER; Start at 18:30 Acetaminophen/ Hydrocodone Bitart ([place] (5/325)) 1 tab Q6H PRN PO MODERATE PAIN LEVEL 4-6; Start 09/23/16 at 18:30 Morphine Sulfate (morphine) 2 mg Q4H PRN IV SEVERE PAIN LEVEL 7-10; Start at 18:30 Docusate Sodium (Colace) 100 mg Q12H PRN PO CONSTIPATION; Start 09/23/16 at 18: 30 Zolpidem Tartrate (Ambien) 5 mg QHS PRN PO SLEEP; Start 09/23/16 at 18:30 Salmeterol Xinafoate/ Fluticasone (Advair 250/50 Diskus) 1 inh BID INH Last administered on 09/26/16 08:15; Admin Dose 1 INH; Start 09/23/16 at 21:00 Methylprednisolone Sodium Succinate 60 mg 60 mg Q8 IV Last administered on 09/26 06:01; Admin Dose 60 MG; Start 09/23/16 at 22:00 Azithromycin 250 ml @ 250 mls/hr Q24H IVPB Last administered on 09/25/16 17: 57; Admin Dose 250 MLS/HR; Start 09/23/16 at 18:30 Ceftriaxone Sodium (Rocephin) 50 ml @ 100 mls/hr Q24H IVPB Last administered on 09/25/16 17:57; Admin Dose 100 MLS/HR; Start 09/23/16 at 18:30 Amlodipine Besylate (Norvasc) 2.5 mg DAILY PO Last administered on 09/26/16 08 :20; Admin Dose 2.5 MG; Start 09/24/16 at 09:00 Aspirin (Halfprin) 81 mg DAILY PO Last administered on 09/26/16 08:20; Admin Dose 81 MG; Start 09/24/16 at 09:00 Losartan Potassium (Cozaar) 100 mg QHS PO Last administered on 09/25/16 20:40 ; Admin Dose 100 MG; Start 09/23/16 at 21:00 Miscellaneous Information 1 ea NOTE XX ; Start 09/23/16 at 18:30 Glucose (Glutose) 15 gm Q15M PRN PO DECREASED GLUCOSE; Start 09/23/16 at 18:30 Glucose (Glutose) 22.5 gm Q15M PRN PO DECREASED GLUCOSE; Start 09/23/16 at 18:30 Dextrose (D50w Syringe) 25 ml Q15M PRN IV DECREASED GLUCOSE; Start 09/23/16 at 18:30 Dextrose (D50w Syringe) 50 ml Q15M PRN IV DECREASED GLUCOSE; Start 09/23/16 at 18:30 Glucagon (Glucagen) 1 mg Q15M PRN IM DECREASED GLUCOSE; Start 09/23/16 at 18:30 Glucose (Glutose) 15 gm Q15M PRN BUCCAL DECREASED GLUCOSE; Start 09/23/16 at 18: 30 Promethazine HCl/ Codeine (Phenergan/ Codeine) 5 ml Q4H PRN PO COUGH Last administered on 09/26/16 08:19; Admin Dose 5 ML; Start 09/24/16 at 11:30 Diagnostic Test (Pha) (Accu-Chek) 1 ea 02 XX Last administered on 09/26/16 02: 07; Admin Dose 1 EA; Start 09/25/16 at 02:00 Insulin Glargine (Lantus) 15 unit DAILY@20 SC Last administered on 09/25/16 20 :41; Admin Dose 15 UNIT; Start 09/25/16 at 20:00 Assessment/Plan Chief Complaint/Hosp Course Assessment 1. Patient admitted for severe asthmatic bronchitis exacerbation with very slow clinical improvement. 2. History of hypertension. 3. History of diabetes. plan 1. Decrease steroids 2. Continue bronchodilators 3. Continue O2 if needed 4. Encourage ambulation Anticipate discharge tomorrow Problems: MALCOLM LEZAMA MD, [facility] September 26, 2016 12:30
--- NOTE | 2016-09-26 15:00 | PN ---
Date/Time of Note Date/Time of Note DATE: 09/26/16 TIME: 14:58 Assessment/Plan VTE Prophylaxis VTE Prophylaxis Intervention: SCD's Lines/Catheters [facility] Saline Lock Assessment/Plan Chief Complaint/Hosp Course 1. Acute asthma exacerbation with acute bronchitis-improving -Continue Rocephin and azithromycin -Continue breathing treatments as well as IV steroids, wean down Steroid dose -Pulmonology consultation appreciated -Phenergan with codeine as needed 2. Hypertension-stable -Continue home meds 3. Hyperglycemia-persists -A1c is 6.0 -Increased Lantus dose Prophylaxis: SCDs Problems: Subjective 24 Hr Interval Summary Respiratory: cough, pleuritic pain Exam/Review of Systems Vital Signs Vitals Vital Signs Date Time Temp Pulse Resp B/P Pulse Ox O2 Delivery O2 Flow Rate FiO2 09/26/16 13:06 2.0 09/26/16 13:06 91 20 96 Nasal Cannula 09/26/16 11:42 97.4 149/80 09/24/16 09:10 21 Intake and Output 09/25/16 09/25/16 09/26/16 15:00 23:00 07:00 Intake Total 960 ml 300 ml Balance 960 ml 300 ml Exam Constitutional: alert, oriented Respiratory: wheezing Cardiovascular: regular rate and rhythm Gastrointestinal: soft, No distended Musculoskeletal: nl extremities to inspection Results Result Diagram: 09/26/16 0645 09/26/16 0645 Results 24 hrs Laboratory Tests Test 09/25/16 16:57 09/25/16 20:33 09/26/16 01:53 09/26/16 06:45 Bedside Glucose 293 H 281 H 248 H White Blood Count 13.5 H Red Blood Count 3.89 L Hemoglobin 12.2 Hematocrit 38.1 Mean Corpuscular Volume 97.9 Mean Corpuscular Hemoglobin 31.4 Mean Corpuscular Hemoglobin Concent 32.0 Red Cell Distribution Width 12.8 Platelet Count 220 Mean Platelet Volume 10.5 H Neutrophils % 90.6 H Lymphocytes % 5.9 L Monocytes % 2.7 Eosinophils % 0.0 Basophils % 0.1 Nucleated Red Blood Cells % 0.0 Neutrophils # 12.2 H Lymphocytes # 0.8 Monocytes # 0.4 Eosinophils # 0.0 Basophils # 0.0 Nucleated Red Blood Cells # 0.0 Sodium Level 142 Potassium Level 4.4 Chloride Level 111 H Carbon Dioxide Level 24 Anion Gap 11 Blood Urea Nitrogen 32 H Creatinine 0.91 Glucose Level 219 Calcium Level 8.5 Test 09/26/16 08:14 09/26/16 11:51 Bedside Glucose 207 272 H Medications Medications Current Medications Ondansetron HCl (Zofran Inj) 4 mg Q6H PRN IV NAUSEA AND/OR VOMITING; Start 09/23 at 18:30 Acetaminophen (Tylenol Tab) 650 mg Q6H PRN PO PAIN LEVEL 1-3 OR FEVER; Start at 18:30 Acetaminophen/ Hydrocodone Bitart ([place] (5/325)) 1 tab Q6H PRN PO MODERATE PAIN LEVEL 4-6; Start 09/23/16 at 18:30 Morphine Sulfate (morphine) 2 mg Q4H PRN IV SEVERE PAIN LEVEL 7-10; Start at 18:30 Docusate Sodium (Colace) 100 mg Q12H PRN PO CONSTIPATION Last administered on 14:52; Admin Dose 100 MG; Start 09/23/16 at 18:30 Zolpidem Tartrate (Ambien) 5 mg QHS PRN PO SLEEP; Start 09/23/16 at 18:30 Salmeterol Xinafoate/ Fluticasone 1 inh 1 inh BID INH Last administered on 09/26 08:15; Admin Dose 1 INH; Start 09/23/16 at 21:00 Azithromycin 250 ml @ 250 mls/hr Q24H IVPB Last administered on 09/25/16 17: 57; Admin Dose 250 MLS/HR; Start 09/23/16 at 18:30 Ceftriaxone Sodium (Rocephin) 50 ml @ 100 mls/hr Q24H IVPB Last administered on 09/25/16 17:57; Admin Dose 100 MLS/HR; Start 09/23/16 at 18:30 Amlodipine Besylate (Norvasc) 2.5 mg DAILY PO Last administered on 09/26/16 08 :20; Admin Dose 2.5 MG; Start 09/24/16 at 09:00 Aspirin (Halfprin) 81 mg DAILY PO Last administered on 09/26/16 08:20; Admin Dose 81 MG; Start 09/24/16 at 09:00 Losartan Potassium (Cozaar) 100 mg QHS PO Last administered on 09/25/16 20:40 ; Admin Dose 100 MG; Start 09/23/16 at 21:00 Miscellaneous Information 1 ea NOTE XX ; Start 09/23/16 at 18:30 Glucose (Glutose) 15 gm Q15M PRN PO DECREASED GLUCOSE; Start 09/23/16 at 18:30 Glucose (Glutose) 22.5 gm Q15M PRN PO DECREASED GLUCOSE; Start 09/23/16 at 18:30 Dextrose (D50w Syringe) 25 ml Q15M PRN IV DECREASED GLUCOSE; Start 09/23/16 at 18:30 Dextrose (D50w Syringe) 50 ml Q15M PRN IV DECREASED GLUCOSE; Start 09/23/16 at 18:30 Glucagon (Glucagen) 1 mg Q15M PRN IM DECREASED GLUCOSE; Start 09/23/16 at 18:30 Glucose (Glutose) 15 gm Q15M PRN BUCCAL DECREASED GLUCOSE; Start 09/23/16 at 18: 30 Promethazine HCl/ Codeine (Phenergan/ Codeine) 5 ml Q4H PRN PO COUGH Last administered on 09/26/16 08:19; Admin Dose 5 ML; Start 09/24/16 at 11:30 Diagnostic Test (Pha) (Accu-Chek) 1 ea 02 XX Last administered on 09/26/16 02: 07; Admin Dose 1 EA; Start 09/25/16 at 02:00 Insulin Glargine (Lantus) 15 unit DAILY@20 SC Last administered on 09/25/16 20 :41; Admin Dose 15 UNIT; Start 09/25/16 at 20:00 Methylprednisolone Sodium Succinate (Solu-Medrol) 40 mg Q12 IV ; Start 09/26/16 at 21:00 DAIJA CONWAY September 26, 2016 15:00
[2016-09-26] MEDS: CEFTRIAXONE 1 GM/50 ML (PMX) 50 ML IVPB SCH (17:48)
[2016-09-26] MEDS: AZITHROMYCIN 500MG/NS (PMX) 250 ML IVPB SCH (19:30)
[2016-09-26] MEDS: LOSARTAN 50 MG TAB PO SCH (20:51)
[2016-09-26] MEDS: INSULIN GLARGINE [LANtus] 3 ML PEN SC SCH (21:37)
[2016-09-27] VITALS (10 sets, daily range): BP systolic 136–161; BP diastolic 64–92; PULSE 63–86; RESP 17–19
[2016-09-27] MEDS: ALBUTEROL/IPRATROPIUM (NEB) 3 ML AMP HHN SCH ×6 (01:03→20:24)
[2016-09-27] MEDS: ACCU-CHEK XX SCH (02:40)
[2016-09-27] MEDS ORDERED: INSULIN ASPART [NOVOLOG] 3 ML PEN SC ONE (03:30)
[2016-09-27 07:58] LABS: ADD SCAN DIFF NO
[2016-09-27 08:04] LABS: HEMATOCRIT 38.3 % (37.0-47.0); HEMOGLOBIN 12.4 g/dl (12.0-16.0); LYMPHOCYTES % 8.6 % (15.0-51.0); MEAN CORPUSCULAR HEMOGLOBIN 31.2 pg (29.0-33.0); MEAN CORPUSCULAR HGB CONC 32.4 g/dl (32.0-37.0); MEAN CORPUSCULAR VOLUME 96.2 fl (82.0-101.0); MEAN PLATELET VOLUME 10.5 fl (7.4-10.4); MONOCYTE # 0.6 10^3/ul (0.3-0.9); MONOCYTES % 5.1 % (0.0-11.0); NEUTROPHIL # 9.5 10^3/ul (1.6-7.5); NEUTROPHILS % 84.1 % (39.0-77.0); PLATELET COUNT 205 10^3/UL (140-415); RED BLOOD COUNT 3.98 10^6/ul (4.20-5.40); RED CELL DISTRIBUTION WIDTH 12.5 % (11.5-14.5); WHITE BLOOD COUNT 11.4 10^3/ul (4.8-10.8)
[2016-09-27] MEDS: PROMETHAZINE/CODEINE 5ML CUP PO PRN (08:12)
[2016-09-27] MEDS: ASPIRIN (EC) 81 MG TAB PO SCH (08:12)
[2016-09-27] MEDS: AMLODIPINE 2.5 MG TAB PO SCH (08:13)
[2016-09-27] MEDS: METHYLPREDNISOLONE 125 MG INJ IV SCH ×2 (08:14→20:14)
[2016-09-27] MEDS: SALMETEROL/FLUTICASONE 250/50 INHA INH SCH ×2 (08:22→20:13)
[2016-09-27] MEDS: INSULIN ASPART [NOVOLOG] 3 ML PEN SC SCH ×7 (08:39→20:19)
[2016-09-27 08:54] LABS: CREATININE 0.86 mg/dl (0.44-1.00)
[2016-09-27 08:55] LABS: CALCIUM 8.5 mg/dl (8.4-10.2)
--- NOTE | 2016-09-27 14:39 | CONS ---
Date/Time of Note Date/Time of Note DATE: 09/27/16 TIME: 14:38 Consult Date/Type/Reason Admit Date/Time September 23, 2016 at 16:01 Initial Consult Date 09/24/16 Type of Consultation: Pulmonary Subjective Feeling a little better today Objective Vital Signs Date Time Temp Pulse Resp B/P Pulse Ox O2 Delivery O2 Flow Rate FiO2 09/27/16 12:22 88 20 97 Nasal Cannula 2.0 09/27/16 11:53 97.6 158/78 09/24/16 09:10 21 Intake and Output 09/26/16 09/26/16 09/27/16 15:00 23:00 07:00 Intake Total 950 ml 500 ml Balance 950 ml 500 ml Exam GENERAL: Elderly lady comfortable at rest VITAL SIGNS: per chart NECK: Supple. No JVD or lymphadenopathy. CARDIAC EXAM: S1, S2. No added sounds or murmurs. CHEST: clear bilaterally, No added sounds, rales or wheezes ABDOMEN: Soft, nontender. No guarding or rebound. EXTREMITIES: No cyanosis, clubbing or edema. NEUROLOGIC: Generalized weakness. No focal deficits. Results/Medications Result Diagram: 09/27/16 0657 09/27/16 0657 Results 24 hrs Laboratory Tests Test 09/26/16 17:43 09/26/16 20:47 09/27/16 02:37 09/27/16 05:24 Bedside Glucose 274 H 221 H 356 H 268 H Test 09/27/16 06:57 09/27/16 08:11 09/27/16 12:09 White Blood Count 11.4 H Red Blood Count 3.98 L Hemoglobin 12.4 Hematocrit 38.3 Mean Corpuscular Volume 96.2 Mean Corpuscular Hemoglobin 31.2 Mean Corpuscular Hemoglobin Concent 32.4 Red Cell Distribution Width 12.5 Platelet Count 205 Mean Platelet Volume 10.5 H Neutrophils % 84.1 H Lymphocytes % 8.6 L Monocytes % 5.1 Eosinophils % 0.0 Basophils % 0.0 Nucleated Red Blood Cells % 0.0 Neutrophils # 9.5 H Lymphocytes # 1.0 Monocytes # 0.6 Eosinophils # 0.0 Basophils # 0.0 Nucleated Red Blood Cells # 0.0 Sodium Level 145 H Potassium Level 4.0 Chloride Level 107 Carbon Dioxide Level 25 Anion Gap 17 H Blood Urea Nitrogen 32 H Creatinine 0.86 Glucose Level 202 Calcium Level 8.5 Bedside Glucose 155 161 Medications Current Medications Ondansetron HCl (Zofran Inj) 4 mg Q6H PRN IV NAUSEA AND/OR VOMITING; Start 09/23 at 18:30 Acetaminophen (Tylenol Tab) 650 mg Q6H PRN PO PAIN LEVEL 1-3 OR FEVER; Start at 18:30 Acetaminophen/ Hydrocodone Bitart ([place] (5/325)) 1 tab Q6H PRN PO MODERATE PAIN LEVEL 4-6; Start 09/23/16 at 18:30 Morphine Sulfate (morphine) 2 mg Q4H PRN IV SEVERE PAIN LEVEL 7-10; Start at 18:30 Docusate Sodium (Colace) 100 mg Q12H PRN PO CONSTIPATION Last administered on 14:52; Admin Dose 100 MG; Start 09/23/16 at 18:30 Zolpidem Tartrate (Ambien) 5 mg QHS PRN PO SLEEP; Start 09/23/16 at 18:30 Salmeterol Xinafoate/ Fluticasone 1 inh 1 inh BID INH Last administered on 09/27 08:22; Admin Dose 1 INH; Start 09/23/16 at 21:00 Azithromycin 250 ml @ 250 mls/hr Q24H IVPB Last administered on 09/26/16 19: 30; Admin Dose 250 MLS/HR; Start 09/23/16 at 18:30 Ceftriaxone Sodium (Rocephin) 50 ml @ 100 mls/hr Q24H IVPB Last administered on 09/26/16 17:48; Admin Dose 100 MLS/HR; Start 09/23/16 at 18:30 Amlodipine Besylate (Norvasc) 2.5 mg DAILY PO Last administered on 09/27/16 08 :13; Admin Dose 2.5 MG; Start 09/24/16 at 09:00 Aspirin (Halfprin) 81 mg DAILY PO Last administered on 09/27/16 08:12; Admin Dose 81 MG; Start 09/24/16 at 09:00 Losartan Potassium (Cozaar) 100 mg QHS PO Last administered on 09/26/16 20:51 ; Admin Dose 100 MG; Start 09/23/16 at 21:00 Miscellaneous Information 1 ea NOTE XX ; Start 09/23/16 at 18:30 Glucose (Glutose) 15 gm Q15M PRN PO DECREASED GLUCOSE; Start 09/23/16 at 18:30 Glucose (Glutose) 22.5 gm Q15M PRN PO DECREASED GLUCOSE; Start 09/23/16 at 18:30 Dextrose (D50w Syringe) 25 ml Q15M PRN IV DECREASED GLUCOSE; Start 09/23/16 at 18:30 Dextrose (D50w Syringe) 50 ml Q15M PRN IV DECREASED GLUCOSE; Start 09/23/16 at 18:30 Glucagon (Glucagen) 1 mg Q15M PRN IM DECREASED GLUCOSE; Start 09/23/16 at 18:30 Glucose (Glutose) 15 gm Q15M PRN BUCCAL DECREASED GLUCOSE; Start 09/23/16 at 18: 30 Promethazine HCl/ Codeine (Phenergan/ Codeine) 5 ml Q4H PRN PO COUGH Last administered on 09/27/16 08:12; Admin Dose 5 ML; Start 09/24/16 at 11:30 Diagnostic Test (Pha) (Accu-Chek) 1 ea 02 XX Last administered on 09/27/16 02: 40; Admin Dose 1 EA; Start 09/25/16 at 02:00 Methylprednisolone Sodium Succinate (Solu-Medrol) 40 mg Q12 IV Last administered on 09/27/16 08:14; Admin Dose 40 MG; Start 09/26/16 at 21:00 Insulin Glargine (Lantus) 20 unit DAILY@20 SC Last administered on 09/26/16 21 :37; Admin Dose 20 UNIT; Start 09/26/16 at 20:00 Assessment/Plan Chief Complaint/Hosp Course Assessment 1. Patient admitted for severe asthmatic bronchitis exacerbation slowly improving 2. History of hypertension. 3. History of diabetes. plan 1. Decrease steroids 2. Continue bronchodilators 3. Continue O2 if needed 4. Encourage ambulation Discharge planning Problems: MALCOLM LEZAMA [facility], [facility] September 27, 2016 14:38
--- NOTE | 2016-09-27 15:59 | PN ---
Date/Time of Note Date/Time of Note DATE: 09/27/16 TIME: 15:59 Assessment/Plan VTE Prophylaxis VTE Prophylaxis Intervention: SCD's Lines/Catheters IV C[facility]ter Type (from [facility] Saline Lock Assessment/Plan Chief Complaint/Hosp Course 1. Acute asthma exacerbation with acute bronchitis-improving -Continue Rocephin and azithromycin -Continue breathing treatments as well as IV steroids, wean down Steroid dose -Pulmonology consultation appreciated -Phenergan with codeine as needed 2. Hypertension-stable -Continue home meds 3. Hyperglycemia-Improved -A1c is 6.0 -Increased Lantus dose Prophylaxis: SCDs Problems: Subjective 24 Hr Interval Summary Respiratory: cough, pleuritic pain Exam/Review of Systems Vital Signs Vitals Vital Signs Date Time Temp Pulse Resp B/P Pulse Ox O2 Delivery O2 Flow Rate FiO2 09/27/16 15:33 98.0 71 19 136/64 98 09/27/16 12:22 Nasal Cannula 2.0 09/24/16 09:10 21 Intake and Output 09/26/16 09/26/16 09/27/16 15:00 23:00 07:00 Intake Total 950 ml 500 ml Balance 950 ml 500 ml Exam Constitutional: alert Respiratory: congested cough Cardiovascular: regular rate and rhythm Gastrointestinal: soft, No distended Musculoskeletal: nl extremities to inspection Results Result Diagram: 09/27/16 0657 09/27/16 0657 Results 24 hrs Laboratory Tests Test 09/26/16 17:43 09/26/16 20:47 09/27/16 02:37 09/27/16 05:24 Bedside Glucose 274 H 221 H 356 H 268 H Test 09/27/16 06:57 09/27/16 08:11 09/27/16 12:09 White Blood Count 11.4 H Red Blood Count 3.98 L Hemoglobin 12.4 Hematocrit 38.3 Mean Corpuscular Volume 96.2 Mean Corpuscular Hemoglobin 31.2 Mean Corpuscular Hemoglobin Concent 32.4 Red Cell Distribution Width 12.5 Platelet Count 205 Mean Platelet Volume 10.5 H Neutrophils % 84.1 H Lymphocytes % 8.6 L Monocytes % 5.1 Eosinophils % 0.0 Basophils % 0.0 Nucleated Red Blood Cells % 0.0 Neutrophils # 9.5 H Lymphocytes # 1.0 Monocytes # 0.6 Eosinophils # 0.0 Basophils # 0.0 Nucleated Red Blood Cells # 0.0 Sodium Level 145 H Potassium Level 4.0 Chloride Level 107 Carbon Dioxide Level 25 Anion Gap 17 H Blood Urea Nitrogen 32 H Creatinine 0.86 Glucose Level 202 Calcium Level 8.5 Bedside Glucose 155 161 Medications Medications Current Medications Ondansetron HCl (Zofran Inj) 4 mg Q6H PRN IV NAUSEA AND/OR VOMITING; Start 09/23 at 18:30 Acetaminophen (Tylenol Tab) 650 mg Q6H PRN PO PAIN LEVEL 1-3 OR FEVER; Start at 18:30 Acetaminophen/ Hydrocodone Bitart ([place] (5/325)) 1 tab Q6H PRN PO MODERATE PAIN LEVEL 4-6; Start 09/23/16 at 18:30 Morphine Sulfate (morphine) 2 mg Q4H PRN IV SEVERE PAIN LEVEL 7-10; Start at 18:30 Docusate Sodium (Colace) 100 mg Q12H PRN PO CONSTIPATION Last administered on 14:52; Admin Dose 100 MG; Start 09/23/16 at 18:30 Zolpidem Tartrate (Ambien) 5 mg QHS PRN PO SLEEP; Start 09/23/16 at 18:30 Salmeterol Xinafoate/ Fluticasone 1 inh 1 inh BID INH Last administered on 09/27 08:22; Admin Dose 1 INH; Start 09/23/16 at 21:00 Azithromycin 250 ml @ 250 mls/hr Q24H IVPB Last administered on 09/26/16 19: 30; Admin Dose 250 MLS/HR; Start 09/23/16 at 18:30 Ceftriaxone Sodium (Rocephin) 50 ml @ 100 mls/hr Q24H IVPB Last administered on 09/26/16 17:48; Admin Dose 100 MLS/HR; Start 09/23/16 at 18:30 Amlodipine Besylate (Norvasc) 2.5 mg DAILY PO Last administered on 09/27/16 08 :13; Admin Dose 2.5 MG; Start 09/24/16 at 09:00 Aspirin (Halfprin) 81 mg DAILY PO Last administered on 09/27/16 08:12; Admin Dose 81 MG; Start 09/24/16 at 09:00 Losartan Potassium (Cozaar) 100 mg QHS PO Last administered on 09/26/16 20:51 ; Admin Dose 100 MG; Start 09/23/16 at 21:00 Miscellaneous Information 1 ea NOTE XX ; Start 09/23/16 at 18:30 Glucose (Glutose) 15 gm Q15M PRN PO DECREASED GLUCOSE; Start 09/23/16 at 18:30 Glucose (Glutose) 22.5 gm Q15M PRN PO DECREASED GLUCOSE; Start 09/23/16 at 18:30 Dextrose (D50w Syringe) 25 ml Q15M PRN IV DECREASED GLUCOSE; Start 09/23/16 at 18:30 Dextrose (D50w Syringe) 50 ml Q15M PRN IV DECREASED GLUCOSE; Start 09/23/16 at 18:30 Glucagon (Glucagen) 1 mg Q15M PRN IM DECREASED GLUCOSE; Start 09/23/16 at 18:30 Glucose (Glutose) 15 gm Q15M PRN BUCCAL DECREASED GLUCOSE; Start 09/23/16 at 18: 30 Promethazine HCl/ Codeine (Phenergan/ Codeine) 5 ml Q4H PRN PO COUGH Last administered on 09/27/16 08:12; Admin Dose 5 ML; Start 09/24/16 at 11:30 Diagnostic Test (Pha) (Accu-Chek) 1 ea 02 XX Last administered on 09/27/16 02: 40; Admin Dose 1 EA; Start 09/25/16 at 02:00 Methylprednisolone Sodium Succinate (Solu-Medrol) 40 mg Q12 IV Last administered on 09/27/16 08:14; Admin Dose 40 MG; Start 09/26/16 at 21:00 Insulin Glargine (Lantus) 20 unit DAILY@20 SC Last administered on 09/26/16 21 :37; Admin Dose 20 UNIT; Start 09/26/16 at 20:00 DAIJA OCNWAY September 27, 2016 15:59
[2016-09-27] MEDS: CEFTRIAXONE 1 GM/50 ML (PMX) 50 ML IVPB SCH (16:11)
[2016-09-27] MEDS: AZITHROMYCIN 500MG/NS (PMX) 250 ML IVPB SCH (17:17)
[2016-09-27] MEDS: LOSARTAN 50 MG TAB PO SCH ×2 (20:21→20:45)
[2016-09-27] MEDS: INSULIN GLARGINE [LANtus] 3 ML PEN SC SCH (20:21)
[2016-09-28] MEDS: ALBUTEROL/IPRATROPIUM (NEB) 3 ML AMP HHN SCH ×6 (00:36→20:19)
[2016-09-28] MEDS: ACCU-CHEK XX SCH (02:00)
[2016-09-28 05:08] LABS: ADD SCAN DIFF NO
[2016-09-28 05:24] LABS: ABNORMAL IP MESSAGE 1; BASOPHILS % 0.3 % (0.0-2.0); HEMATOCRIT 36.6 % (37.0-47.0); HEMOGLOBIN 12.1 g/dl (12.0-16.0); LYMPHOCYTES # 0.8 10^3/ul (0.8-2.9); MEAN CORPUSCULAR HEMOGLOBIN 31.3 pg (29.0-33.0); MEAN CORPUSCULAR HGB CONC 33.1 g/dl (32.0-37.0); MEAN CORPUSCULAR VOLUME 94.6 fl (82.0-101.0); MEAN PLATELET VOLUME 10.5 fl (7.4-10.4); MONOCYTE # 0.3 10^3/ul (0.3-0.9); MONOCYTES % 3.3 % (0.0-11.0); NEUTROPHIL # 8.2 10^3/ul (1.6-7.5); NEUTROPHILS % 83.3 % (39.0-77.0); PLATELET COUNT 216 10^3/UL (140-415); RED BLOOD COUNT 3.87 10^6/ul (4.20-5.40); RED CELL DISTRIBUTION WIDTH 12.1 % (11.5-14.5); WHITE BLOOD COUNT 9.8 10^3/ul (4.8-10.8)
[2016-09-28 06:07] LABS: POTASSIUM 4.1 mmol/L (3.5-5.1)
[2016-09-28 06:10] LABS: CREATININE 0.95 mg/dl (0.44-1.00)
[2016-09-28 06:11] LABS: CALCIUM 8.5 mg/dl (8.4-10.2)
[2016-09-28 07:35] VITALS: BP 162/75; RESP 19
[2016-09-28] MEDS: AMLODIPINE 2.5 MG TAB PO SCH (08:52)
[2016-09-28] MEDS: SALMETEROL/FLUTICASONE 250/50 INHA INH SCH ×2 (08:52→20:52)
[2016-09-28] MEDS: ASPIRIN (EC) 81 MG TAB PO SCH (08:52)
[2016-09-28] MEDS: METHYLPREDNISOLONE 125 MG INJ IV SCH ×2 (08:53→20:51)
[2016-09-28] MEDS: INSULIN ASPART [NOVOLOG] 3 ML PEN SC SCH ×7 (08:57→20:56)
[2016-09-28] MEDS: ALBUTEROL/IPRATROPIUM (NEB) 3 ML AMP HHN PRN (11:22)
--- NOTE | 2016-09-28 14:25 | PN ---
Date/Time of Note Date/Time of Note DATE: 09/28/16 TIME: 14:23 Assessment/Plan VTE Prophylaxis VTE Prophylaxis Intervention: SCD's Lines/Catheters [facility] Saline Lock Assessment/Plan Chief Complaint/Hosp Course 1. Acute asthma exacerbation with acute bronchitis-continues to have persistent wheezing and coughing -Continue Rocephin and azithromycin -Continue breathing treatments as well as IV steroids, wean down Steroid dose as able -Pulmonology consultation appreciated -Phenergan with codeine as needed 2. Hypertension-stable -Continue home meds 3. Hyperglycemia secondary to steroids-Improved -A1c is 6.0 -Continue Lantus Prophylaxis: SCDs Problems: Subjective 24 Hr Interval Summary Respiratory: cough, pleuritic pain Exam/Review of Systems Vital Signs Vitals Vital Signs Date Time Temp Pulse Resp B/P Pulse Ox O2 Delivery O2 Flow Rate FiO2 09/28/16 11:22 89 22 99 Nasal Cannula 2.0 09/28/16 07:35 99.0 162/75 09/24/16 09:10 21 Intake and Output 09/27/16 09/27/16 09/28/16 15:00 23:00 07:00 Intake Total 600 ml 1000 ml Output Total 900 ml Balance 600 ml 100 ml Exam Constitutional: alert Respiratory: congested cough, wheezing Cardiovascular: regular rate and rhythm Gastrointestinal: soft, No distended Musculoskeletal: nl extremities to inspection Results Result Diagram: 09/28/16 0425 09/28/16 0425 Results 24 hrs Laboratory Tests Test 09/27/16 17:09 09/27/16 20:04 09/28/16 02:32 09/28/16 04:25 Bedside Glucose 221 H 186 292 H White Blood Count 9.8 Red Blood Count 3.87 L Hemoglobin 12.1 Hematocrit 36.6 L Mean Corpuscular Volume 94.6 Mean Corpuscular Hemoglobin 31.3 Mean Corpuscular Hemoglobin Concent 33.1 Red Cell Distribution Width 12.1 Platelet Count 216 Mean Platelet Volume 10.5 H Neutrophils % 83.3 H Lymphocytes % 8.0 L Monocytes % 3.3 Eosinophils % 0.0 Basophils % 0.3 Nucleated Red Blood Cells % 0.0 Neutrophils # 8.2 H Lymphocytes # 0.8 Monocytes # 0.3 Eosinophils # 0.0 Basophils # 0.0 Nucleated Red Blood Cells # 0.0 Sodium Level 142 Potassium Level 4.1 Chloride Level 105 Carbon Dioxide Level 23 Anion Gap 18 H Blood Urea Nitrogen 31 H Creatinine 0.95 Glucose Level 280 H Calcium Level 8.5 Test 09/28/16 08:10 09/28/16 12:03 Bedside Glucose 164 141 Medications Medications Current Medications Ondansetron HCl (Zofran Inj) 4 mg Q6H PRN IV NAUSEA AND/OR VOMITING; Start 09/23 at 18:30 Acetaminophen (Tylenol Tab) 650 mg Q6H PRN PO PAIN LEVEL 1-3 OR FEVER; Start at 18:30 Acetaminophen/ Hydrocodone Bitart ([place] (5/325)) 1 tab Q6H PRN PO MODERATE PAIN LEVEL 4-6; Start 09/23/16 at 18:30 Morphine Sulfate (morphine) 2 mg Q4H PRN IV SEVERE PAIN LEVEL 7-10; Start at 18:30 Docusate Sodium (Colace) 100 mg Q12H PRN PO CONSTIPATION Last administered on 14:52; Admin Dose 100 MG; Start 09/23/16 at 18:30 Zolpidem Tartrate (Ambien) 5 mg QHS PRN PO SLEEP; Start 09/23/16 at 18:30 Salmeterol Xinafoate/ Fluticasone 1 inh 1 inh BID INH Last administered on 09/28 08:52; Admin Dose 1 INH; Start 09/23/16 at 21:00 Azithromycin 250 ml @ 250 mls/hr Q24H IVPB Last administered on 09/27/16 17: 17; Admin Dose 250 MLS/HR; Start 09/23/16 at 18:30 Ceftriaxone Sodium (Rocephin) 50 ml @ 100 mls/hr Q24H IVPB Last administered on 09/27/16 16:11; Admin Dose 100 MLS/HR; Start 09/23/16 at 18:30 Amlodipine Besylate (Norvasc) 2.5 mg DAILY PO Last administered on 09/28/16 08 :52; Admin Dose 2.5 MG; Start 09/24/16 at 09:00 Aspirin (Halfprin) 81 mg DAILY PO Last administered on 09/28/16 08:52; Admin Dose 81 MG; Start 09/24/16 at 09:00 Losartan Potassium (Cozaar) 100 mg QHS PO Last administered on 09/27/16 20:45 ; Admin Dose 100 MG; Start 09/23/16 at 21:00 Miscellaneous Information 1 ea NOTE XX ; Start 09/23/16 at 18:30 Glucose (Glutose) 15 gm Q15M PRN PO DECREASED GLUCOSE; Start 09/23/16 at 18:30 Glucose (Glutose) 22.5 gm Q15M PRN PO DECREASED GLUCOSE; Start 09/23/16 at 18:30 Dextrose (D50w Syringe) 25 ml Q15M PRN IV DECREASED GLUCOSE; Start 09/23/16 at 18:30 Dextrose (D50w Syringe) 50 ml Q15M PRN IV DECREASED GLUCOSE; Start 09/23/16 at 18:30 Glucagon (Glucagen) 1 mg Q15M PRN IM DECREASED GLUCOSE; Start 09/23/16 at 18:30 Glucose (Glutose) 15 gm Q15M PRN BUCCAL DECREASED GLUCOSE; Start 09/23/16 at 18: 30 Promethazine HCl/ Codeine (Phenergan/ Codeine) 5 ml Q4H PRN PO COUGH Last administered on 09/27/16 08:12; Admin Dose 5 ML; Start 09/24/16 at 11:30 Diagnostic Test (Pha) (Accu-Chek) 1 ea 02 XX Last administered on 09/28/16 02: 00; Admin Dose 1 EA; Start 09/25/16 at 02:00 Methylprednisolone Sodium Succinate (Solu-Medrol) 40 mg Q12 IV Last administered on 09/28/16 08:53; Admin Dose 40 MG; Start 09/26/16 at 21:00 Insulin Glargine (Lantus) 20 unit DAILY@20 SC Last administered on 09/27/16 20 :21; Admin Dose 20 UNIT; Start 09/26/16 at 20:00 DAIJA CONWAY September 28, 2016 14:25
--- NOTE | 2016-09-28 16:33 | CONS ---
Date/Time of Note Date/Time of Note DATE: 09/28/16 TIME: 16:31 Consult Date/Type/Reason Admit Date/Time September 23, 2016 at 16:01 Initial Consult Date 09/24/16 Type of Consultation: Pulmonary Subjective No events. Still wheezing severely. Objective Vital Signs Date Time Temp Pulse Resp B/P Pulse Ox O2 Delivery O2 Flow Rate FiO2 09/28/16 11:22 89 22 99 Nasal Cannula 2.0 09/28/16 07:35 99.0 162/75 09/24/16 09:10 21 Intake and Output 09/27/16 09/27/16 09/28/16 15:00 23:00 07:00 Intake Total 600 ml 1000 ml Output Total 900 ml Balance 600 ml 100 ml Exam HEENT: Neck supple; no JVD; no LAD CVS: RRR, S1 and S2 CHEST: ++ diffuse wheezing ABD: Soft, NT, + BS EXT: No c/c/e Results/Medications Result Diagram: 09/28/16 0425 09/28/16 0425 Results 24 hrs Laboratory Tests Test 09/27/16 17:09 09/27/16 20:04 09/28/16 02:32 09/28/16 04:25 Bedside Glucose 221 H 186 292 H White Blood Count 9.8 Red Blood Count 3.87 L Hemoglobin 12.1 Hematocrit 36.6 L Mean Corpuscular Volume 94.6 Mean Corpuscular Hemoglobin 31.3 Mean Corpuscular Hemoglobin Concent 33.1 Red Cell Distribution Width 12.1 Platelet Count 216 Mean Platelet Volume 10.5 H Neutrophils % 83.3 H Lymphocytes % 8.0 L Monocytes % 3.3 Eosinophils % 0.0 Basophils % 0.3 Nucleated Red Blood Cells % 0.0 Neutrophils # 8.2 H Lymphocytes # 0.8 Monocytes # 0.3 Eosinophils # 0.0 Basophils # 0.0 Nucleated Red Blood Cells # 0.0 Sodium Level 142 Potassium Level 4.1 Chloride Level 105 Carbon Dioxide Level 23 Anion Gap 18 H Blood Urea Nitrogen 31 H Creatinine 0.95 Glucose Level 280 H Calcium Level 8.5 Test 09/28/16 08:10 09/28/16 12:03 Bedside Glucose 164 141 Medications Current Medications Ondansetron HCl (Zofran Inj) 4 mg Q6H PRN IV NAUSEA AND/OR VOMITING; Start 09/23 at 18:30 Acetaminophen (Tylenol Tab) 650 mg Q6H PRN PO PAIN LEVEL 1-3 OR FEVER; Start at 18:30 Acetaminophen/ Hydrocodone Bitart ([place] (5/325)) 1 tab Q6H PRN PO MODERATE PAIN LEVEL 4-6; Start 09/23/16 at 18:30 Morphine Sulfate (morphine) 2 mg Q4H PRN IV SEVERE PAIN LEVEL 7-10; Start at 18:30 Docusate Sodium (Colace) 100 mg Q12H PRN PO CONSTIPATION Last administered on 14:52; Admin Dose 100 MG; Start 09/23/16 at 18:30 Zolpidem Tartrate (Ambien) 5 mg QHS PRN PO SLEEP; Start 09/23/16 at 18:30 Salmeterol Xinafoate/ Fluticasone 1 inh 1 inh BID INH Last administered on 09/28 08:52; Admin Dose 1 INH; Start 09/23/16 at 21:00 Azithromycin 250 ml @ 250 mls/hr Q24H IVPB Last administered on 09/27/16 17: 17; Admin Dose 250 MLS/HR; Start 09/23/16 at 18:30 Ceftriaxone Sodium (Rocephin) 50 ml @ 100 mls/hr Q24H IVPB Last administered on 09/27/16 16:11; Admin Dose 100 MLS/HR; Start 09/23/16 at 18:30 Amlodipine Besylate (Norvasc) 2.5 mg DAILY PO Last administered on 09/28/16 08 :52; Admin Dose 2.5 MG; Start 09/24/16 at 09:00 Aspirin (Halfprin) 81 mg DAILY PO Last administered on 09/28/16 08:52; Admin Dose 81 MG; Start 09/24/16 at 09:00 Losartan Potassium (Cozaar) 100 mg QHS PO Last administered on 09/27/16 20:45 ; Admin Dose 100 MG; Start 09/23/16 at 21:00 Miscellaneous Information 1 ea NOTE XX ; Start 09/23/16 at 18:30 Glucose (Glutose) 15 gm Q15M PRN PO DECREASED GLUCOSE; Start 09/23/16 at 18:30 Glucose (Glutose) 22.5 gm Q15M PRN PO DECREASED GLUCOSE; Start 09/23/16 at 18:30 Dextrose (D50w Syringe) 25 ml Q15M PRN IV DECREASED GLUCOSE; Start 09/23/16 at 18:30 Dextrose (D50w Syringe) 50 ml Q15M PRN IV DECREASED GLUCOSE; Start 09/23/16 at 18:30 Glucagon (Glucagen) 1 mg Q15M PRN IM DECREASED GLUCOSE; Start 09/23/16 at 18:30 Glucose (Glutose) 15 gm Q15M PRN BUCCAL DECREASED GLUCOSE; Start 09/23/16 at 18: 30 Promethazine HCl/ Codeine (Phenergan/ Codeine) 5 ml Q4H PRN PO COUGH Last administered on 09/27/16 08:12; Admin Dose 5 ML; Start 09/24/16 at 11:30 Diagnostic Test (Pha) (Accu-Chek) 1 ea 02 XX Last administered on 09/28/16 02: 00; Admin Dose 1 EA; Start 09/25/16 at 02:00 Methylprednisolone Sodium Succinate (Solu-Medrol) 40 mg Q12 IV Last administered on 09/28/16 08:53; Admin Dose 40 MG; Start 09/26/16 at 21:00 Insulin Glargine (Lantus) 20 unit DAILY@20 SC Last administered on 09/27/16 20 :21; Admin Dose 20 UNIT; Start 09/26/16 at 20:00 Assessment/Plan Additional Assessment/Plan IMP: 1. Asthma Exacerbation RECS: 1. Continue solumedrol 40 mg BID 2. D/C ceftriaxone 3. Continue BD's VALERIE RYAN MD September 28, 2016 16:33
[2016-09-28] MEDS: AZITHROMYCIN 500MG/NS (PMX) 250 ML IVPB SCH (17:52)
[2016-09-28 19:10] VITALS: BP 166/75; RESP 20
[2016-09-28] MEDS: LOSARTAN 50 MG TAB PO SCH (20:51)
[2016-09-28] MEDS: INSULIN GLARGINE [LANtus] 3 ML PEN SC SCH (21:00)
[2016-09-28 22:05] VITALS: BP 146/65; PULSE 62; RESP 17
[2016-09-29] MEDS: ALBUTEROL/IPRATROPIUM (NEB) 3 ML AMP HHN SCH ×4 (00:12→13:49)
[2016-09-29] MEDS: ACCU-CHEK XX SCH (02:00)
[2016-09-29 05:29] LABS: ADD SCAN DIFF NO
[2016-09-29 05:45] LABS: ABNORMAL IP MESSAGE 1; BASOPHILS % 0.1 % (0.0-2.0); HEMATOCRIT 38.3 % (37.0-47.0); HEMOGLOBIN 12.5 g/dl (12.0-16.0); LYMPHOCYTES # 0.8 10^3/ul (0.8-2.9); LYMPHOCYTES % 8.7 % (15.0-51.0); MEAN CORPUSCULAR HGB CONC 32.6 g/dl (32.0-37.0); MEAN PLATELET VOLUME 10.3 fl (7.4-10.4); MONOCYTE # 0.3 10^3/ul (0.3-0.9); MONOCYTES % 3.2 % (0.0-11.0); NEUTROPHIL # 7.2 10^3/ul (1.6-7.5); NEUTROPHILS % 80.5 % (39.0-77.0); NUCLEATED RED BLOOD CELLS% 0.2 /100WBC (0.0-0.0); PLATELET COUNT 218 10^3/UL (140-415); RED BLOOD COUNT 4.03 10^6/ul (4.20-5.40); RED CELL DISTRIBUTION WIDTH 12.1 % (11.5-14.5)
[2016-09-29 06:16] LABS: CALCIUM 8.7 mg/dl (8.4-10.2); CREATININE 0.85 mg/dl (0.44-1.00); MAGNESIUM 2.3 mg/dl (1.7-2.5); PHOSPHORUS 3.6 mg/dl (2.5-4.9); POTASSIUM 4.7 mmol/L (3.5-5.1)
[2016-09-29 07:26] VITALS: BP 173/70; RESP 18
[2016-09-29] MEDS: INSULIN ASPART [NOVOLOG] 3 ML PEN SC SCH ×4 (08:41→12:52)
[2016-09-29] MEDS: SALMETEROL/FLUTICASONE 250/50 INHA INH SCH (08:42)
[2016-09-29] MEDS: METHYLPREDNISOLONE 125 MG INJ IV SCH (08:43)
[2016-09-29] MEDS: ASPIRIN (EC) 81 MG TAB PO SCH (08:43)
[2016-09-29] MEDS: AMLODIPINE 2.5 MG TAB PO SCH (08:43)
[2016-09-29] MEDS ORDERED: ADV25050 INH (13:45)
--- NOTE | 2016-09-29 13:46 | PDOCDIS ---
Discharge Instructions CONDITION Patient Condition: Good HOME CARE INSTRUCTIONS: Special Diet: Carb controlled ACTIVITY: Activity Restrictions: No Restrictions FOLLOW UP/APPOINTMENTS Appointments F/U WITH YOUR PCP IN 1-2 WEEKS DAIJA CONWAY September 29, 2016 13:46
--- NOTE | 2016-09-29 15:11 | CONS ---
Date/Time of Note Date/Time of Note DATE: 09/29/16 TIME: 15:09 Consult Date/Type/Reason Admit Date/Time September 23, 2016 at 16:01 Initial Consult Date 09/24/16 Type of Consultation: Pulmonary Subjective Doing much better. Ambulating Objective Vital Signs Date Time Temp Pulse Resp B/P Pulse Ox O2 Delivery O2 Flow Rate FiO2 09/29/16 13:49 83 18 92 21 09/29/16 09:32 Nasal Cannula 2.0 09/29/16 07:26 97.9 173/70 Intake and Output 09/28/16 09/28/16 09/29/16 15:00 23:00 07:00 Intake Total 860 ml 300 ml Output Total 600 ml Balance 860 ml -300 ml Exam HEENT: Neck supple; no JVD; no LAD CVS: RRR, S1 and S2 CHEST: ++ diffuse wheezing though good air movement ABD: Soft, NT, + BS EXT: No c/c/e Results/Medications Result Diagram: 09/29/16 0438 09/29/16 0438 Results 24 hrs Laboratory Tests Test 09/28/16 17:46 09/28/16 20:17 09/28/16 20:49 09/29/16 02:17 Bedside Glucose 184 251 H 224 H 197 Test 09/29/16 04:38 09/29/16 08:40 09/29/16 12:29 White Blood Count 9.0 Red Blood Count 4.03 L Hemoglobin 12.5 Hematocrit 38.3 Mean Corpuscular Volume 95.0 Mean Corpuscular Hemoglobin 31.0 Mean Corpuscular Hemoglobin Concent 32.6 Red Cell Distribution Width 12.1 Platelet Count 218 Mean Platelet Volume 10.3 Neutrophils % 80.5 H Lymphocytes % 8.7 L Monocytes % 3.2 Eosinophils % 0.0 Basophils % 0.1 Nucleated Red Blood Cells % 0.2 H Neutrophils # 7.2 Lymphocytes # 0.8 Monocytes # 0.3 Eosinophils # 0.0 Basophils # 0.0 Nucleated Red Blood Cells # 0.0 Sodium Level 138 Potassium Level 4.7 Chloride Level 106 Carbon Dioxide Level 23 Anion Gap 14 Blood Urea Nitrogen 29 H Creatinine 0.85 Glucose Level 308 H Calcium Level 8.7 Phosphorus Level 3.6 Magnesium Level 2.3 Bedside Glucose 170 159 Medications Current Medications Ondansetron HCl (Zofran Inj) 4 mg Q6H PRN IV NAUSEA AND/OR VOMITING; Start 09/23 at 18:30 Acetaminophen (Tylenol Tab) 650 mg Q6H PRN PO PAIN LEVEL 1-3 OR FEVER; Start at 18:30 Acetaminophen/ Hydrocodone Bitart ([place] (5/325)) 1 tab Q6H PRN PO MODERATE PAIN LEVEL 4-6; Start 09/23/16 at 18:30 Morphine Sulfate (morphine) 2 mg Q4H PRN IV SEVERE PAIN LEVEL 7-10; Start at 18:30 Docusate Sodium (Colace) 100 mg Q12H PRN PO CONSTIPATION Last administered on 14:52; Admin Dose 100 MG; Start 09/23/16 at 18:30 Zolpidem Tartrate (Ambien) 5 mg QHS PRN PO SLEEP; Start 09/23/16 at 18:30 Salmeterol Xinafoate/ Fluticasone 1 inh 1 inh BID INH Last administered on 09/29 08:42; Admin Dose 1 INH; Start 09/23/16 at 21:00 Azithromycin (Zithromax 500mg/ NS (Pmx)) 250 ml @ 250 mls/hr Q24H IVPB Last administered on 09/28/16 17:52; Admin Dose 250 MLS/HR; Start 09/23/16 at 18:30 Amlodipine Besylate (Norvasc) 2.5 mg DAILY PO Last administered on 09/29/16 08 :43; Admin Dose 2.5 MG; Start 09/24/16 at 09:00 Aspirin (Halfprin) 81 mg DAILY PO Last administered on 09/29/16 08:43; Admin Dose 81 MG; Start 09/24/16 at 09:00 Losartan Potassium (Cozaar) 100 mg QHS PO Last administered on 09/28/16 20:51 ; Admin Dose 100 MG; Start 09/23/16 at 21:00 Miscellaneous Information 1 ea NOTE XX ; Start 09/23/16 at 18:30 Glucose (Glutose) 15 gm Q15M PRN PO DECREASED GLUCOSE; Start 09/23/16 at 18:30 Glucose (Glutose) 22.5 gm Q15M PRN PO DECREASED GLUCOSE; Start 09/23/16 at 18:30 Dextrose (D50w Syringe) 25 ml Q15M PRN IV DECREASED GLUCOSE; Start 09/23/16 at 18:30 Dextrose (D50w Syringe) 50 ml Q15M PRN IV DECREASED GLUCOSE; Start 09/23/16 at 18:30 Glucagon (Glucagen) 1 mg Q15M PRN IM DECREASED GLUCOSE; Start 09/23/16 at 18:30 Glucose (Glutose) 15 gm Q15M PRN BUCCAL DECREASED GLUCOSE; Start 09/23/16 at 18: 30 Promethazine HCl/ Codeine (Phenergan/ Codeine) 5 ml Q4H PRN PO COUGH Last administered on 09/27/16 08:12; Admin Dose 5 ML; Start 09/24/16 at 11:30 Diagnostic Test (Pha) (Accu-Chek) 1 ea 02 XX Last administered on 09/28/16 02: 00; Admin Dose 1 EA; Start 09/25/16 at 02:00 Methylprednisolone Sodium Succinate (Solu-Medrol) 40 mg Q12 IV Last administered on 09/29/16 08:43; Admin Dose 40 MG; Start 09/26/16 at 21:00 Insulin Glargine (Lantus) 20 unit DAILY@20 SC Last administered on 09/28/16 21 :00; Admin Dose 20 UNIT; Start 09/26/16 at 20:00 Assessment/Plan Additional Assessment/Plan IMP: 1. Asthma Exacerbation RECS: 1. CS taper 2. LABA/ICS and prn MARK 3. F/U with Dr. Mcpherson in 1 week VALERIE RYAN MD September 29, 2016 15:11
--- NOTE | 2016-09-29 20:14 | DS ---
DATE OF ADMISSION: 09/23/2016 DATE OF DISCHARGE: 09/29/2016 DISCHARGE DIAGNOSES: 1. Severe asthma exacerbation with acute bronchitis, now resolved. Discharged with Advair. 2. Hypertension, stable. Continue home medications. 3. Hyperglycemia secondary to steroids. A1c 6.0. Continue home regimen. HOSPITAL COURSE: The patient is a 71-year-old female with history of asthma, as well as diabetes an d hypertension. The patient states that she was using Spiriva as well as albuterol, but she was not getting resolution of her shortness of breath. She was diagnosed with an asthma exacerbation as we ll as possible pneumonia in the right lung base with bronchitis. The patient did require several da ys of antibiotics as well as IV steroids. She was seen by pulmonology. The patient's condition ult imately improved. Her wheezing did resolve. She was felt to be stable for discharge. On the day o f discharge, patient's vitals, labs, physical exam were stable. She had no further acute complaints . Questions were answered. Of note, her A1c was 6.0. CONDITION ON DISCHARGE: Stable. DISPOSITION: To home. MEDICATIONS: 1. The patient is to continue usual home medications. 2. She was also given a prescription for Advair 250/50 Disk 1 inhalation b.i.d. 3. Once again, the patient is to continue her other home medications. FOLLOWUP: The patient is to follow up with PCP in 1 to 2 weeks. Greater than 30 minutes were spent coordinating discharge of patient. Dictated By: DAIJA THOMAS/ZELDA Conf#: [id number] DID#: [id number]
== END 2016-09-29 15:53 | disposition home or self-care (01) | DRG 202 ==
LOC: FTE 11:02 → TEL 16:01 → MS1 09-27 15:13
PROVIDERS: ADMIT Internal Medicine; ATTEND Internal Medicine
DX: J45.901 Unspecified asthma with (acute) exacerbation (principal); J18.9 Pneumonia, unspecified organism; J20.9 Acute bronchitis, unspecified; I10 Essential (primary) hypertension; E87.6 Hypokalemia; R74.0 Nonspecific elevation of levels of transaminase and lactic acid dehydrogenase [LDH]; E11.65 Type 2 diabetes mellitus with hyperglycemia; T38.0X5A Adverse effect of glucocorticoids and synthetic analogues, initial encounter; Y92.239 Unspecified place in hospital as the place of occurrence of the external cause
CPT/HCPCS: 36415; 36600; 71010; 80048; 80053; 80061; 82803; 82962; 83036; 83690; 83735; 84100; 84484; 85025; 86704; 86709; 86803; 87340; 93005; 94640; 94644; 94645; 96374; 96375; J0456; J0696; J1815; J1956; J2930; J3475